=== PATIENT | female | born 1945 | race Caucasian/White ===

== ENCOUNTER → 2016-04-26 | Outpatient (CLI) | payer MEDICARE ==
[~2016-04-26] MED LIST: ACYCLOVIR800 MG PO; ADULT LOW DOSE81 MG PO; ADVIL200 M1 PO; AMBIEN 5MG TAB5 MG PO; AMBIEN CR6.25 MG PO; AROMASIN25 MG PO; ATIVAN0.5 MG PO; ATORVASTATIN CA10 M1 PO; B12 INJ.,1000 MCG/M IM; B12 INJ.,1000 MCG/M SL; BYSTOLIC5 MG PO; CALCIUM 500500 M1 PO; CARVEDILOL 25MG25 MG PO; HCTZ/LISINOPRIL1 TA3 PO; LEVOTHYROXIN0.075 M1 PO; LEVOTHYROXIN0.088 M2 PO; LIQUID MAGNESI400 MG PO; LORTAB 5/500 501 TAB PO; LOSARTAN POTASS50 MG PO; MEDROL 4MG. DOSE4 MG PO; METOPROLOL50 MG PO; NATURE'S BLE2500 MCG SL; NATURE'S BLEND500 MG PO; PLAVIX75 M1 PO; PROTONIX 40MG T40 MG PO; SYNTHROID 0.0.075 MG PO; TOPROL XL 50MG50 MG PO; XANAX 0.5MG TA0.5 MG PO; XANAX XR0.5 MG PO; ZOLPIDEM5 MG PO
--- NOTE | 2016-05-10 12:53 | RADIOLOGY REPORT PS360 ---
DIG MAMM-DX UNI A/VWS-LT W/CAD COMPARISON: 04/03/2016 and multiple previous exams INDICATION: Follow-up abnormal mammogram TECHNIQUE: Spot compression mag views FINDINGS: Postsurgical changes involve the inferior left breast with surgical clips and scarring at this region. There are g calcifications in this area which are somewhat amorphous. No linear calcifications evident. These are probably related to fat necrosis. No developing architectural distortion. Study is somewhat limited due to motion despite repeating the exam several times. IMPRESSION: Probably benign findings left breast regarding calcifications in the previous lumpectomy site likely representing fatty necrosis BI-RADS CATEGORY: 3_Probably Benign-Short Term F/U RECOMMENDED FOLLOWUP: 6 month mammographic follow-up with magnification views (A letter has been sent to the patient regarding results of the study.)
== END ==
LOC: RAD 15:00
DX: R92.8 Other abnormal and inconclusive findings on diagnostic imaging of breast (principal)
CPT/HCPCS: G0206-LT

== ENCOUNTER 2016-06-11 18:57 | Emergency (ER) | payer MEDICARE ==
[~2016-06-11] VITALS: Ht 154.9 cm; Wt 43.5 kg
[~2016-06-11 18:57] MED LIST changes: -CARVEDILOL 25MG25 MG PO; -LOSARTAN POTASS50 MG PO
[2016-06-11] MEDS ORDERED: LOSARTAN POTASS50 MG PO (19:01)
[2016-06-11] MEDS ORDERED: CARVEDILOL 25MG25 MG PO (19:02)
[2016-06-11 19:13] LABS: LYMPH # 1.8 K/mm3 (0.7-4.5)
[2016-06-11 19:17] LABS: HEMOGLOBIN 12.8 g/dL (12.2-16.2)
--- NOTE | 2016-06-11 19:34 | Emergency Room Report ---
See Addendum History of Present Illness Time Seen by 1913 Presenting Problem in Triage Pt arrived:Wheelchair Presenting Problem:PT C/O BURNING IN HER CHEST THAT STARTED AROUND 1830. ADVISES IT STARTED IN HR LEGS AND WENT UP INTO HER CHEST. 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 N Clinical Suspician of Infection? N Mental Status: 1 - Regular (Normal Baseline) Sepsis Risk:Low Sepsis Risk Have you (or family members/close friends) recently traveled outside the [place]? N If Yes, where/when: Have you had exposure to infectious disease within the past month? N TB? Other? Specify: Source patient, RN notes reviewed, family, RN/MD Exam Limitations no limitations Comment This is a 71-year-old lady brought in by her complaining with a hot sensation that started around 6:30 PM he has she underwent operative her legs, into her abdomen and finally into her chest. Patient denies any shortness of breath or chest pain. She had a heart cath in December 2015 but no stents were deployed at that time ask her coronaries were not critically obstructed. Patient stated that she feels like she is under tremendous amount of stress. She is advised that she also feels nauseated, with her teeth hurting and experiencing a lot of heartburn. ALLERGIES Coded Allergies: Sulfa (Sulfonamide Antibiotics) (Severe, [id number]/THROAT 05/01/16) Home Medications Active Scripts Aspirin (Adult Low Dose Aspirin EC) 81 MG PO DAILY #30 TAB Ref 1 Prov: 09/21/15 Clopidogrel Bisulfate (Plavix) 75 MG PO DAILY #30 TAB Ref 1 Prov: 09/21/15 Reported Medications Alprazolam (Xanax 0.5MG) 0.5 MG PO QHSP PRN INSOMNIA CYANOCOBALAMIN (VITAMIN B-12) (Vitamin B-12) 2,500 MCG SL DAILY Atorvastatin Calcium 10 MG PO QHS #30 TAB Levothyroxine Sodium (Synthroid 0.075MG) 0.075 MG PO DAILY Losartan Potassium (Losartan 50MG) 50 MG PO DAILY #30 Carvedilol (Carvedilol 25MG) 25 MG PO BID History Medical History General CAD? No Angina: Yes [place]: No Hypertension? Yes Hyperlipidemia? Yes CHF? No DVT? No PE? No COPD? No Asthma? No Anemia? No GERD? Yes Gastric ulcers? No GI Bleed? No Hernia? No Thyroid Problems? Yes Hypothyroidism? No CVA? No Seizures? No Diabetes? No Renal Insuffiency? No End Stage Renal Disease? No UTI? No Stones? No GB Disease: No Nephritic Syndrome? No Asplenia? No Hepatitis? No Sickle Cell Disease? No Arthritis? Yes Migraines? No Cataracts? No Glaucoma? No MRSA? No HIV? No TB? No Anxiety? Yes Depression? No Cancer? Yes Site: BREAST CA Immunization Hx DT/Tetanus Unknown Pneumonia Refuses Surgical Hx Previous Surgery?Y D & C CARPEL TUNNEL RT HAND LT BREAST CANCER Family History Family Hx Diabetes No CAD Yes Hypertension Yes Hyperlipidemia Yes Cancer Yes TB No Social History Smoking Hx Smoker: Never Smoker Tobacco: No Packs/day < 1 Pack Alcohol Alcohol: No Review of Systems All Other Systems Reviewed and Negative ENT other (dental pain). Gastrointestinal nausea Comment hot sensation all over her body Physical Exam Vital Signs Vital Signs Date Time Temp Pulse Resp B/P Pulse O2 O2 Flow FiO2 Ox Delivery Rate 06/11 1950 66 16 159/91 100 06/11 1858 98.2 74 16 162/82 100 General Appearance normal appearance, WD/WN Neck normal inspection, non-tender, supple, full range of motion Respiratory Status Yes: trachea midline, chest symmetrical, non tender chest. No: respiratory distress. Lung Sounds bilateral: normal breath sounds, lungs clear. 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 No Comment 20:00-case signed out to Dr villanueva, pending re-evaluation and repeat cardiac enzymes at 9 PM. Results/Orders Laboratory Tests 06/11/161899: Sodium 134 L, Potassium 3.6, Chloride 98, Carbon Dioxide 25, BUN 10, Creatinine 0.7, Estimated Creat Clear 52, Estimated GFR (MDRD) 83, Glucose 124 H, Calcium 9.4, Total Bilirubin 0.3, AST 27, ALT 30, Alkaline Phosphatase 76, Creatine Kinase 140, CK-MB (CK-2) Rel Index 0.9, CK and CKMB Interp 1.3, Troponin I 0.05, Total Protein 7.3, Albumin 3.9, Globulin 3.4 H, Albumin/Globulin Ratio 1.1, WBC 7.9, RBC 3.96 L, Hgb 12.8, Hct 36.5 L, MCV 92.0, RDW 12.5, Plt Count 257, MPV 5.7 L, Gran % 68.8, Gran # 5.4, Lymphocytes % 23.0, Monocytes % 5.8, Eosinophils % 1.9, Basophils % 0.5, Lymphocytes # 1.8, Monocytes # 0.5, Eosinophils # 0.2, Basophils # 0.0, PUBS MCHC 34.8, MCH 32.0 H Current Medication Orders Sig/Jose Manuel Start time Last Medication Dose Route Stop Time Status Admin Aspirin 324 MG ONCE ONE 06/11 2014 CANr PO 06/11 2015 Clopidogrel Bisulfate 300 MG ONCE ONE 06/11 2014 CAN PO 06/11 2015 Enoxaparin Sodium 100 MG ONCE ONE 06/11 2014 CANr SC 06/11 2015 Multi-Ingredient GI 60 ML ONCE ONE 06/11 1999 DC 06/11 Drug PO 06/11 Multi-Ingredient GI 0 .STK-MED ONE 06/11 1949 DC Drug PO Sodium Chloride 10 ML PRN PRN 06/11 1914 AC IV 06/12 1900 Orders Procedure Date/time Status ELECTROCARDIOGRAM REQUEST 06/11 1900 Active CHEST-PORTABLE 06/11 1900 Active IV SALINE LOCK 06/11 1900 Active CBC WITH AUTO DIFF 06/11 1900 Complete CARDIAC ENZYMES 06/11 1900 Complete CHEM 12 PROFILE 06/11 1900 Complete 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 of ischemic chgs, no ectopy, normal QRS XRAY/CT/US XRAY/CT/US XRAY chest XR interpretation by reviewed by me Xray Results no infiltrates, normal heart size, normal lung inflation svitlana Departure Departure Disposition Still a Patient Clinical Impression Primary Impression: Chest pain Qualifiers: Chest pain type: unspecified Qualified Code: R07.9 - Chest pain, unspecified Condition STABLE Referrals Eloy ESCALONA,Kendrick (Family) ED Critical Care Critical Care No at 202
[2016-06-11 22:38] VITALS: BP 140/79
--- NOTE | 2016-06-12 07:53 | RADIOLOGY REPORT PS360 ---
CHEST-PORTABLE HISTORY: Chest pain and pressure CP ORDERING PHYSICIAN: Yong carlson MD PATIENT AGE: 71 years COMPARISON: 01/02/2016 FINDINGS: The cardiomediastinal silhouette and pulmonary vascularity are within normal limits. Surgical clips are present over the left lower hemithorax. There is hyperinflation suggesting central airway disease. No lobar consolidation or collapse.. The right hilum is somewhat prominent possibly related to underlying vasculature. Upright PA and lateral chest suggested for further evaluation No acute bony abnormalities. IMPRESSION: 1. Suspect central airway disease/COPD 2. Mild prominence of the right hilum which may be due to the technique and may be confirmed with follow-up otherwise negative
== END 2016-06-11 22:39 | disposition home or self-care (01) ==
LOC: ER 18:57
PROVIDERS: Emergency Medicine
DX: R07.9 Chest pain, unspecified (principal); I10 Essential (primary) hypertension; K21.9 Gastro-esophageal reflux disease without esophagitis
CPT/HCPCS: J2405

== ENCOUNTER → 2016-07-13 | Outpatient (CLI) | payer MEDICARE ==
[~2016-07-13] MED LIST changes: +CARVEDILOL 25MG25 MG PO; +LOSARTAN POTASS50 MG PO
[2016-07-13 15:32] LABS: HEMOGLOBIN 12.4 g/dL (12.2-16.2); LYMPH # 1.1 K/mm3 (0.7-4.5)
[2016-07-13 15:40] LABS: URINE BILIRUBIN - DIPSTICK NEGATIVE (NEG); URINE BLOOD 1+ (NEG)
[2016-07-13 16:17] LABS: BUN 12 mg/dL (7-18); GFR (ESTIMATED) 83 ML/MIN (59-)
[2016-07-19 03:37] LABS: Osteocalcin 21.8 ng/mL (.); Vitamin D, 25-Hydroxy 31.2 ng/mL (30.0-100.0)
== END ==
LOC: LAB 15:06
PROVIDERS: Internal Medicine Nephrology
DX: M81.0 Age-related osteoporosis without current pathological fracture (principal); I11.9 Hypertensive heart disease without heart failure

== ENCOUNTER 2016-12-27 13:18 | Emergency (ER) | payer MEDICARE ==
[~2016-12-27] VITALS: Ht 154.9 cm; Wt 43.7 kg
[~2016-12-27 13:18] MED LIST changes: +CARVEDILOL 1212.5 MG PO; -CARVEDILOL 25MG25 MG PO; +MASON NATURAL2000 IU PO; +XANAX 1MG TABLET1 MG PO
[2016-12-27] MEDS ORDERED: LIPITOR10 MG PO (13:29)
--- NOTE | 2016-12-27 13:58 | Urgent Treatment Center Report ---
History of Present Issue Date/Time Seen by Provider 12/27/16 3583 Visit Reason Pt arrived:Walked Presenting Problem:PT HAS LT CALF PAIN THAT HAS BEEN BOTHERSOME SINCE BEFORE . CONTACTED [facility] OFFICE AND THEY SAID TO COME TO [facility]. PT AFRAID SHE MAY HAVE A BLOOD CLOT. PT DESCRIBES PAIN BURNING. Location if Accident: Onset of symptoms date/time:/ or onset unknown for:MEDICAL HX UNKNOWN Have you (or family members/close friends) recently traveled outside the [place]? N If Yes, where/when: Have you had exposure to infectious disease within the past month? TB? Other? Specify: c/o left calf pain since around 12/21/16. hx of svitlana LE pain x weeks. Worse at night after active throughout day, better w/ ambulation. Hasn't discussed w/ PCP but plans to. Reports today's pain is different. Stings at times. Mostly "just uncomfortable". Worse with palpation. Has noticed bruising in same area but isn' t sure how that occurred. "I have racked my brain thinking about it". Also has light bruise to right medial ankle "and I don't know how that happened either". Pt really worried about a blood clot and wants to rule that out today. Denies swelling or redness. Source patient Exam Limitations no limitations ALLERGIES Coded Allergies: Sulfa (Sulfonamide Antibiotics) (Severe, [id number]/THROAT 09/11/16) Home Medications Active Scripts Aspirin (Adult Low Dose Aspirin EC) 81 MG PO DAILY #30 TAB Ref 1 Prov: 09/21/15 Clopidogrel Bisulfate (Plavix) 75 MG PO DAILY #30 TAB Ref 1 Prov: 09/21/15 Reported Medications CYANOCOBALAMIN (VITAMIN B-12) (Vitamin B-12) 2,500 MCG SL DAILY Atorvastatin Calcium 10 MG PO QHS #30 TAB Levothyroxine Sodium (Synthroid 0.075MG) 0.075 MG PO DAILY Alprazolam (Xanax 1MG) 0.5-1 MG PO QHSP PRN SLEEP #30 TAB Carvedilol (Carvedilol 12.5MG) 12.5 MG PO BID CHOLECALCIFEROL (VITAMIN D3) (Vitamin D) 2,000 UNITS PO DAILY #30 Losartan Potassium (Losartan 50MG) 50 MG PO DAILY #30 Atorvastatin Calcium (Lipitor 10MG) 10 MG PO QHS History Medical History General CAD? No Angina: Yes [place]: Yes Hypertension? Yes Hyperlipidemia? Yes CHF? No DVT? No PE? No COPD? No Asthma? No Anemia? No GERD? Yes Gastric ulcers? No GI Bleed? No Hernia? No Thyroid Problems? Yes Hypothyroidism? No CVA? No Seizures? No Diabetes? No Renal Insuffiency? No UTI? No Stones? No BPH? No GB Disease: No Nephritic Syndrome? No Asplenia? No Hepatitis? No Sickle Cell Disease? No Arthritis? Yes Migraines? No Cataracts? No Glaucoma? No MRSA? No HIV? No TB? No Anxiety? Yes Depression? No Cancer? Yes Site: BREAST CA More? Yes Additional hx: OSTEOPOROSIS, GERD Immunization HX DT/Tetanus Unknown Pneumonia Never Had Surgical Hx Previous Surgery?Y D & C CARPEL TUNNEL RT HAND LT MASTECTOMY CARDIAC CATH X2 KIDNEY CATH Family History Family HX Diabetes No CAD Yes Hypertension Yes Hyperlipidemia Yes Cancer Yes TB No Social History Smoking Hx Smoker: Never Smoker Tobacco: No Packs/day N/A Alcohol Alcohol: No Review of Systems All Other Systems Reviewed and Negative Constitutional denies fever, denies malaise, denies weakness Respiratory denies shortness of breath Cardiovascular denies chest pain, denies edema, denies palpitations Gastrointestinal denies nausea Musculoskeletal joint pain ("typical. I have arthritis."), denies joint swelling Skin see HPI Psychiatric/Neurological denies numbness, denies tingling Physical Exam Vital Signs Vital Signs Date Time Temp Pulse Resp B/P Pulse O2 O2 Flow FiO2 Ox Delivery Rate 12/27 1452 99.2 70 18 183/89 98 12/27 1323 99.2 70 18 183/ 98 General Appearance normal appearance, no apparent distress Respiratory Status No: respiratory distress. Cardiovascular no peripheral edema Peripheral Pulses Pulses normal Yes Back gait normal Extremities normal range of motion (left knee, ankle), normal inspection (left LE x/ ecchymosis), mild tenderness left leg only in area of ecchymosis (see skin ), svitlana proximal calves 31cm Strength 5 Lower Ext (L), 5 Lower Ext (R) Neurologic alert, oriented x 3 Mental status normal mood/affect, very pleasant Skin bruising (lt proximal lateral LL 3x7cm) Medical Decision Making LABS/Meds/Orders Pt receiving controlled substance in ED? No Results/Orders Orders Procedure Date/time Status VENOUS LOWER EXT LT 12/27 1341 Complete XRAY/CT/US XRAY/CT/US Ultrasound lower extremity US Interpretation by reviewed by me (discussed w/ autumn Monaco) US results normal (negative for thrombosis) Progress UT Progress Notes 1 Date 12/27/16 Time 1425 Comment Left [facility] for venous doppler LLE UT Progress Notes 2 Date 12/27/16 Time 1448 Comment Pt returned. Verbal report from Jacinda w/ vascular lab. Negative doppler. Departure Departure Time of Disposition 1449 Disposition DC Home or Self Care(routine) Clinical Impression Primary Impression: Contusion of left lower leg, initial encounter Condition STABLE Referrals Kendrick Lyons MD (Family) IMMEDIATELY for new or worsening symptoms. Schedule FU appt to discuss svitlana leg pain occurring x weeks. Patient Instructions DI for Contusion Additional Instructions ice pack elevate No blood clot Follow up w/ primary care (pradeep or Dr. Lyons) to discuss ongoing svitlana leg pain. Discharge Counseling Counseled pt/family regarding diagnosis, test results, home care, follow up needs at [phone]
--- NOTE | 2016-12-27 13:58 | Urgent Treatment Center Report ---
History of Present Issue Date/Time Seen by Provider 12/27/16 9683 Visit Reason Pt arrived:Walked Presenting Problem:PT HAS LT CALF PAIN THAT HAS BEEN BOTHERSOME SINCE BEFORE . CONTACTED [facility] OFFICE AND THEY SAID TO COME TO [facility]. PT AFRAID SHE MAY HAVE A BLOOD CLOT. PT DESCRIBES PAIN BURNING. Location if Accident: Onset of symptoms date/time:/ or onset unknown for:MEDICAL HX UNKNOWN Have you (or family members/close friends) recently traveled outside the [place]? N If Yes, where/when: Have you had exposure to infectious disease within the past month? TB? Other? Specify: c/o left calf pain since around 12/21/16. hx of svitlana LE pain x weeks. Worse at night after active throughout day, better w/ ambulation. Hasn't discussed w/ PCP but plans to. Reports today's pain is different. Stings at times. Mostly "just uncomfortable". Worse with palpation. Has noticed bruising in same area but isn' t sure how that occurred. "I have racked my brain thinking about it". Also has light bruise to right medial ankle "and I don't know how that happened either". Pt really worried about a blood clot and wants to rule that out today. Denies swelling or redness. Source patient Exam Limitations no limitations ALLERGIES Coded Allergies: Sulfa (Sulfonamide Antibiotics) (Severe, [id number]/THROAT 09/11/16) Home Medications Active Scripts Aspirin (Adult Low Dose Aspirin EC) 81 MG PO DAILY #30 TAB Ref 1 Prov: 09/21/15 Clopidogrel Bisulfate (Plavix) 75 MG PO DAILY #30 TAB Ref 1 Prov: 09/21/15 Reported Medications CYANOCOBALAMIN (VITAMIN B-12) (Vitamin B-12) 2,500 MCG SL DAILY Atorvastatin Calcium 10 MG PO QHS #30 TAB Levothyroxine Sodium (Synthroid 0.075MG) 0.075 MG PO DAILY Alprazolam (Xanax 1MG) 0.5-1 MG PO QHSP PRN SLEEP #30 TAB Carvedilol (Carvedilol 12.5MG) 12.5 MG PO BID CHOLECALCIFEROL (VITAMIN D3) (Vitamin D) 2,000 UNITS PO DAILY #30 Losartan Potassium (Losartan 50MG) 50 MG PO DAILY #30 Atorvastatin Calcium (Lipitor 10MG) 10 MG PO QHS History Medical History General CAD? No Angina: Yes [place]: Yes Hypertension? Yes Hyperlipidemia? Yes CHF? No DVT? No PE? No COPD? No Asthma? No Anemia? No GERD? Yes Gastric ulcers? No GI Bleed? No Hernia? No Thyroid Problems? Yes Hypothyroidism? No CVA? No Seizures? No Diabetes? No Renal Insuffiency? No UTI? No Stones? No BPH? No GB Disease: No Nephritic Syndrome? No Asplenia? No Hepatitis? No Sickle Cell Disease? No Arthritis? Yes Migraines? No Cataracts? No Glaucoma? No MRSA? No HIV? No TB? No Anxiety? Yes Depression? No Cancer? Yes Site: BREAST CA More? Yes Additional hx: OSTEOPOROSIS, GERD Immunization HX DT/Tetanus Unknown Pneumonia Never Had Surgical Hx Previous Surgery?Y D & C CARPEL TUNNEL RT HAND LT MASTECTOMY CARDIAC CATH X2 KIDNEY CATH Family History Family HX Diabetes No CAD Yes Hypertension Yes Hyperlipidemia Yes Cancer Yes TB No Social History Smoking Hx Smoker: Never Smoker Tobacco: No Packs/day N/A Alcohol Alcohol: No Review of Systems All Other Systems Reviewed and Negative Constitutional denies fever, denies malaise, denies weakness Respiratory denies shortness of breath Cardiovascular denies chest pain, denies edema, denies palpitations Gastrointestinal denies nausea Musculoskeletal joint pain ("typical. I have arthritis."), denies joint swelling Skin see HPI Psychiatric/Neurological denies numbness, denies tingling Physical Exam Vital Signs Vital Signs Date Time Temp Pulse Resp B/P Pulse O2 O2 Flow FiO2 Ox Delivery Rate 12/27 1452 99.2 70 18 183/89 98 12/27 1323 99.2 70 18 183/ 98 General Appearance normal appearance, no apparent distress Respiratory Status No: respiratory distress. Cardiovascular no peripheral edema Peripheral Pulses Pulses normal Yes Back gait normal Extremities normal range of motion (left knee, ankle), normal inspection (left LE x/ ecchymosis), mild tenderness left leg only in area of ecchymosis (see skin ), svitlana proximal calves 31cm Strength 5 Lower Ext (L), 5 Lower Ext (R) Neurologic alert, oriented x 3 Mental status normal mood/affect, very pleasant Skin bruising (lt proximal lateral LL 3x7cm) Medical Decision Making LABS/Meds/Orders Pt receiving controlled substance in ED? No Results/Orders Orders Procedure Date/time Status VENOUS LOWER EXT LT 12/27 1341 Complete XRAY/CT/US XRAY/CT/US Ultrasound lower extremity US Interpretation by reviewed by me (discussed w/ autumn Monaco) US results normal (negative for thrombosis) Progress UT Progress Notes 1 Date 12/27/16 Time 1425 Comment Left [facility] for venous doppler LLE UT Progress Notes 2 Date 12/27/16 Time 1448 Comment Pt returned. Verbal report from Jacinda w/ vascular lab. Negative doppler. Departure Departure Time of Disposition 1449 Disposition DC Home or Self Care(routine) Clinical Impression Primary Impression: Contusion of left lower leg, initial encounter Condition STABLE Referrals Kendrick Lyons MD (Family) IMMEDIATELY for new or worsening symptoms. Schedule FU appt to discuss svitlana leg pain occurring x weeks. Patient Instructions DI for Contusion Additional Instructions ice pack elevate No blood clot Follow up w/ primary care (pradeep or Dr. Lyons) to discuss ongoing svitlana leg pain. Discharge Counseling Counseled pt/family regarding diagnosis, test results, home care, follow up needs at [phone]
[2016-12-27 14:52] VITALS: BP 183/89
--- NOTE | 2016-12-27 14:53 | CARDIOVASCULAR REPORT ---
"Venous Exam Indications: 729.5 Pain in limb. IMPRESSIONS 1. There is no evidence of significant Reflux. 2. No evidence of deep or superficial vein thrombosis involving the left lower extremity History: Left lower extremity pain. Varicose veins of the left lower extremity. Risk factors: Hypertension. Area of bruising seen on the lateral distal knee area. She states she doesn't recall any injury to this area. It appearedon 12/21/16 and has progressively gotten worse. Medications: Aspirin, 81 mg daily. Left lower extremity venous duplex evaluation. Doppler flow study including spectral analysis, color and martin scale imaging. Location: Vascular laboratory. Patient status: Emergency department. Tables: Venous flow and imaging: + +-------+ + |Location |Overall|Flow properties | + +-------+ + |Left common femoral |Patent |Normal phasicity; spontaneous; | | | |normal augmentation; compressible | + +-------+ + |Left saphenofemoral junction|Patent |Compressible | + +-------+ + |Left profunda femoral |Patent |Compressible | + +-------+ + |Left femoral |Patent |Normal phasicity; spontaneous; | | | |normal augmentation; compressible | + +-------+ + |Left greater saphenous |Patent |Normal phasicity; spontaneous; | | | |normal augmentation; compressible | + +-------+ + |Left popliteal |Patent |Normal phasicity; spontaneous; | | | |normal augmentation; compressible | + +-------+ + |Left posterior tibial |Patent |Compressible | + +-------+ + |Left peroneal |Patent |Compressible | + +-------+ + |Left gastrocnemius |Patent |Compressible | + +-------+ + |Left soleal |Patent |Compressible | + +-------+ + (Report amended ) Electronically signed by: Damien Latif [id number]"
== END 2016-12-27 14:52 | disposition home or self-care (01) ==
LOC: UTC 13:18
DX: S80.12XA Contusion of left lower leg, initial encounter (principal); X58.XXXA Exposure to other specified factors, initial encounter; I25.2 Old myocardial infarction; I10 Essential (primary) hypertension; E78.5 Hyperlipidemia, unspecified; E07.9 Disorder of thyroid, unspecified; Z85.3 Personal history of malignant neoplasm of breast; M81.0 Age-related osteoporosis without current pathological fracture; Z79.02 Long term (current) use of antithrombotics/antiplatelets; Z88.2 Allergy status to sulfonamides; Z79.82 Long term (current) use of aspirin; Z79.899 Other long term (current) drug therapy; Z98.61 Coronary angioplasty status; Z84.81 Family history of carrier of genetic disease; Z83.49 Family history of other endocrine, nutritional and metabolic diseases; Z80.9 Family history of malignant neoplasm, unspecified; M79.605 Pain in left leg; S90.01XA Contusion of right ankle, initial encounter

== ENCOUNTER 2017-01-01 20:31 | Emergency (ER) | payer MEDICARE ==
[~2017-01-01] VITALS: Ht 154.9 cm; Wt 43.7 kg
[~2017-01-01 20:31] MED LIST changes: +LIPITOR10 MG PO
[2017-01-01 21:08] LABS: HEMOGLOBIN 12.9 g/dL (12.2-16.2); LYMPH # 1.9 K/mm3 (0.7-4.5); LYMPH % 28.3 % (10-50.0)
--- NOTE | 2017-01-01 21:09 | Emergency Room Report ---
History of Present Illness Time Seen by [id number] Presenting Problem in Triage Pt arrived:Walked Presenting Problem:PT COMPLAINS OF INCREASED BP ALL DAY AND JEREMI WAS NOTIFIED BY HIS OFFICE AND PT WAS TOLD TO COME IN. PT STATES THAT BP WAS IN THE 200'S AND SHE TOOK HER BP MEDICATION LOSARTAN. 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 N Clinical Suspician of Infection? N Mental Status: 1 - Regular (Normal Baseline) Sepsis Risk:Low Sepsis Risk Have you (or family members/close friends) recently traveled outside the [place]? N If Yes, where/when: Have you had exposure to infectious disease within the past month? N TB? Other? Specify: Source patient, RN notes reviewed, family, old records Exam Limitations no limitations Comment pt with elevated bp despite meds since this afternoon with facial tingling but no vision sx and no speech or motor sx and no chest pain or syncope Cardiac Chest Pain Chest pain indicative of cardiac No Timing/Duration this evening Severity moderate ALLERGIES Coded Allergies: Sulfa (Sulfonamide Antibiotics) (Severe, [id number]/THROAT 09/11/16) Home Medications Active Scripts Aspirin (Adult Low Dose Aspirin EC) 81 MG PO DAILY #30 TAB Ref 1 Prov: 09/21/15 Clopidogrel Bisulfate (Plavix) 75 MG PO DAILY #30 TAB Ref 1 Prov: 09/21/15 Reported Medications CYANOCOBALAMIN (VITAMIN B-12) (Vitamin B-12) 2,500 MCG SL DAILY Atorvastatin Calcium 10 MG PO QHS #30 TAB Levothyroxine Sodium (Synthroid 0.075MG) 0.075 MG PO DAILY Alprazolam (Xanax 1MG) 0.5-1 MG PO QHSP PRN SLEEP #30 TAB Carvedilol (Carvedilol 12.5MG) 12.5 MG PO BID CHOLECALCIFEROL (VITAMIN D3) (Vitamin D) 2,000 UNITS PO DAILY #30 Losartan Potassium (Losartan 50MG) 50 MG PO DAILY #30 Atorvastatin Calcium (Lipitor 10MG) 10 MG PO QHS History Medical History General CAD? No Angina: Yes CT: Yes Hypertension? Yes Hyperlipidemia? Yes CHF? No DVT? No PE? No COPD? No Asthma? No Anemia? No GERD? Yes Gastric ulcers? No GI Bleed? No Hernia? No Thyroid Problems? Yes Hypothyroidism? No CVA? No Seizures? No Diabetes? No Renal Insuffiency? No End Stage Renal Disease? No UTI? No Stones? No BPH? No GB Disease: No Nephritic Syndrome? No Asplenia? No Hepatitis? No Sickle Cell Disease? No Arthritis? Yes Migraines? No Cataracts? No Glaucoma? No MRSA? No HIV? No TB? No Anxiety? Yes Depression? No Cancer? Yes Site: BREAST CA More? Yes Additional hx: OSTEOPOROSIS Immunization Hx DT/Tetanus Unknown Pneumonia Never Had Surgical Hx Previous Surgery?Y D & C CARPEL TUNNEL RT HAND LT LUMPECTOMY CARDIAC CATH X3 KIDNEY CATH Family History Family Hx Diabetes No CAD Yes Hypertension Yes Hyperlipidemia Yes Cancer Yes TB No Social History Smoking Hx Smoker: Former Smoker Tobacco: No Packs/day N/A Alcohol Alcohol: Yes Drugs none Review of Systems All Other Systems Reviewed and Negative Constitutional denies fever Eyes denies drainage ENT denies: ear pain, epistaxis, throat pain. Respiratory denies cough, denies shortness of breath, denies wheezing Cardiovascular denies chest pain, denies syncope Gastrointestinal denies abdominal pain, denies diarrhea, denies vomiting Genitourinary denies: dysuria, frequency, hesitancy, hematuria. Musculoskeletal denies back pain, denies joint pain, denies joint swelling, denies neck pain Skin denies rash Psychiatric/Neurological see HPI, denies headache, denies seizure, tingling, denies weakness Physical Exam Vital Signs Vital Signs Date Time Temp Pulse Resp B/P Pulse O2 O2 Flow FiO2 Ox Delivery Rate 01/02 2236 99.0 71 14 158/82 95 01/01 2204 78 14 187/95 99 01/01 2130 80 14 178/90 99 01/013 99.0 79 14 191/102 99 - WBC >12,000 or <4,000 or 10% bands? 2 or more SIRS Criteria Met? B/P:158/82 MAP:131 Creatinine >2.0? UA output<0.5ml/kg/hr for 2 hrs? Platelet count >100,000? Lactate >2.0mmol/1? INR >1.2 or PTT > than 60 sec? Evidence of Organ Dysfunction? Provider documented clinical suspician of infection? N Sepsis Criteria Count: 0 Sepsis Risk: Low Sepsis Risk General Appearance no apparent distress Eye Exam - bilateral eye PERRL, bilateral eye EOMI Ear, Nose, Throat normal ENT inspection Neck supple Respiratory Status No: respiratory distress. Lung Sounds bilateral: lungs clear. 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 No Results/Orders Laboratory Tests 01/01/172044: Creatine Kinase 57, CK-MB (CK-2) Rel Index 0.9, CK and CKMB Interp < 0.5, Troponin I 0.06 01/01/172044: Sodium 138, Potassium 3.7, Chloride 102, Carbon Dioxide 28, BUN 7, Creatinine 0.7, Estimated Creat Clear 52, Estimated GFR (MDRD) 83, Glucose 101, Calcium 9.2 , WBC 6.8, RBC 4.01 L, Hgb 12.9, Hct 37.0, MCV 92.3, RDW 12.3, Plt Count 245, MPV 7.1 L, Gran % 61.9, Gran # 4.2, Lymphocytes % 28.3, Monocytes % 7.1, Eosinophils % 2.0, Basophils % 0.7, Lymphocytes # 1.9, Monocytes # 0.5, Eosinophils # 0.1, Basophils # 0.1, PUBS MCHC 34.8, MCH 32.1 H Current Medication Orders Sig/Jose Manuel Start time Last Medication Dose Route Stop Time Status Admin Clonidine HCl 0 .STK-MED ONE 01/01 2155 DC .ROUTE Clonidine HCl 0.1 MG ONCE ONE 01/01 2115 DC PO 01/02 2116 Sodium Chloride 10 ML PRN PRN 01/01 2100 AC IV 01/02 2054 Orders Procedure Date/time Status ELECTROCARDIOGRAM REQUEST 01/01 2055 Active IV SALINE LOCK 01/01 2055 Active CBC WITH AUTO DIFF 01/01 2055 Complete CARDIAC ENZYMES 01/01 2055 Complete BASIC METABOLIC PROFILE 01/01 2055 Complete 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 ST/Twave chgs Departure Departure Time of Disposition 2243 Disposition DC Home or Self Care(routine) Clinical Impression Primary Impression: Hypertensive emergency Condition STABLE Referrals Molly Palomo APRN (Family) discussed with dr broderick Patient Instructions Treatments for High Blood Pressure: More Than Just Taking a Pill Additional Instructions please call pcp in am Discharge Counseling Counseled pt/family regarding diagnosis, test results, medications/RX, follow up needs ED Critical Care Critical Care No at 2250
[2017-01-01 22:55] VITALS: BP 167/67
== END 2017-01-01 22:57 | disposition home or self-care (01) ==
LOC: ER 20:31
PROVIDERS: Emergency Medicine
DX: I16.1 Hypertensive emergency (principal); I10 Essential (primary) hypertension; Z87.891 Personal history of nicotine dependence; E78.5 Hyperlipidemia, unspecified; E07.9 Disorder of thyroid, unspecified; M81.0 Age-related osteoporosis without current pathological fracture

== ENCOUNTER 2017-01-24 15:35 | Observation (INO) | payer MEDICARE ==
[~2017-01-24] VITALS: Ht 154.9 cm; Wt 45.8 kg
[2017-01-24 15:41] VITALS: BP 182/89
[2017-01-24 16:12] LABS: HEMOGLOBIN 13.7 g/dL (12.2-16.2); LYMPH # 1.6 K/mm3 (0.7-4.5); LYMPH % 23.4 % (10-50.0)
[2017-01-24 16:16] LABS: URINE BILIRUBIN - DIPSTICK NEGATIVE (NEG); URINE BLOOD NEGATIVE (NEG)
--- NOTE | 2017-01-24 17:01 | Emergency Room Report ---
History of Present Illness Time Seen by 1617 Presenting Problem in Triage Pt arrived:Walked Presenting Problem:FEELING BAD FOR 2 DAYS, H/A WITH NUMBNESS IN THE TOP OF HER HEAD, FEELS HOT TODAY. TOOK TYLENOL AND HAS BURNING SENSATION IN EPIGASTRIC AREA AND CHEST. PT HAS HAD A FEVER THIS MORNING. CHANGED BLOOD PRESSURE MEDICATION 3 DAYS AGO. HAS NOT BEEN URINATING VERY MUCH SINCE THE MEDICATION CHANGE. 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 Y Clinical Suspician of Infection? Y Mental Status: 1 - Regular (Normal Baseline) Sepsis Risk:Low Sepsis Risk Have you (or family members/close friends) recently traveled outside the [place]? N If Yes, where/when: Have you had exposure to infectious disease within the past month? TB? Other? 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 She has been nervous about the side effects. She is excisions been experiencing headache, dizziness, and developed RIGHT shoulder tingling sensation 1 hour prior to presenting to the ED that resolved spontaneously. She is very concerned about her blood pressure and her medications. She denies having weakness, chest pain, abdominal pain, shortness of air. She did have hottness in the head and burning sensation in epigastric area. During interview and examination she was asymptomatic and blood pressure was 150 /70 heart rate is in the 70s and a sat is 100 percent. Source patient, RN notes reviewed, family Exam Limitations no limitations ALLERGIES Coded Allergies: Sulfa (Sulfonamide Antibiotics) (Severe, [id number]/THROAT 09/11/16) Home Medications Active Scripts Aspirin (Adult Low Dose Aspirin EC) 81 MG PO DAILY #30 TAB Ref 1 Prov: 09/21/15 Clopidogrel Bisulfate (Plavix) 75 MG PO DAILY #30 TAB Ref 1 Prov: 09/21/15 Reported Medications Atorvastatin Calcium 10 MG PO QHS #30 TAB Levothyroxine Sodium (Synthroid 0.075MG) 0.075 MG PO DAILY Alprazolam (Xanax 1MG) 0.5-1 MG PO QHSP PRN SLEEP #30 TAB Carvedilol (Carvedilol 12.5MG) 12.5 MG PO BID CHOLECALCIFEROL (VITAMIN D3) (Vitamin D) 2,000 UNITS PO DAILY #30 Losartan Potassium (Losartan 50MG) 50 MG PO DAILY #30 Atorvastatin Calcium (Lipitor 10MG) 10 MG PO QHS History Medical History General CAD? No Angina: Yes [place]: Yes Hypertension? Yes Hyperlipidemia? Yes CHF? No DVT? No PE? No COPD? No Asthma? No Anemia? No GERD? Yes Gastric ulcers? No GI Bleed? No Hernia? No Thyroid Problems? Yes Hypothyroidism? No CVA? No Seizures? No Diabetes? No Renal Insuffiency? No End Stage Renal Disease? No UTI? No Stones? No BPH? No GB Disease: No Nephritic Syndrome? No Asplenia? No Hepatitis? No Sickle Cell Disease? No Arthritis? Yes Migraines? No Cataracts? No Glaucoma? No MRSA? No HIV? No TB? No Anxiety? Yes Depression? No Cancer? Yes Site: BREAST CA More? Yes Additional hx: OSTEOPOROSIS Immunization Hx DT/Tetanus Unknown Pneumonia Never Had Surgical Hx Previous Surgery?Y D & C CARPEL TUNNEL RT HAND LT LUMPECTOMY CARDIAC CATH X3 KIDNEY CATH Family History Family Hx Diabetes No CAD Yes Hypertension Yes Hyperlipidemia Yes Cancer Yes TB No Social History Smoking Hx Smoker: Never Smoker Tobacco: No Packs/day N/A Alcohol Alcohol: Yes Review of Systems All Other Systems Reviewed and Negative Constitutional see HPI, malaise, weakness Eyes no symptoms reported ENT no symptoms reported. Respiratory no symptoms reported Cardiovascular no symptoms reported Gastrointestinal no symptoms reported Genitourinary no symptoms reported. Musculoskeletal no symptoms reported Skin no symptoms reported Physical Exam Vital Signs Vital Signs Date Time Temp Pulse Resp B/P Pulse O2 O2 Flow FiO2 Ox Delivery Rate 01/24 1640 68 18 155/86 100 01/24 1613 71 182/78 01/24 1613 74 182/89 01/24 1612 70 175/80 01/24 1607 66 18 175/80 100 01/24 1541 99.1 68 18 182/89 99 - WBC >12,000 or <4,000 or 10% bands? 2 or more SIRS Criteria Met? B/P:155/86 MAP:120 Creatinine >2.0? UA output<0.5ml/kg/hr for 2 hrs? Platelet count >100,000? Lactate >2.0mmol/1? INR >1.2 or PTT > than 60 sec? Evidence of Organ Dysfunction? Provider documented clinical suspician of infection? Y Sepsis Criteria Count: 1 Sepsis Risk: Low Sepsis Risk General Appearance normal appearance, WD/WN Eye Exam - bilateral eye normal exam, bilateral eye PERRL, bilateral eye EOMI Ear, Nose, Throat hearing grossly normal, normal ENT inspection Neck normal inspection, non-tender, supple, full range of motion Respiratory Status Yes: trachea midline, chest symmetrical, non tender chest. No: respiratory distress. Lung Sounds bilateral: normal breath sounds, lungs clear. 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 No Results/Orders Laboratory Tests 01/24/17 1540: Magnesium Pending 01/24/17 1540: Lactic Acid 1.3 01/24/17 1540: Sodium 125 L, Potassium 3.4 L, Chloride 89 L, Carbon Dioxide 26, BUN 6 L, Creatinine 0.7, Estimated Creat Clear 52, Estimated GFR (MDRD) 83, Glucose 153 H, Calcium 9.1, Total Bilirubin 0.6, AST 20, ALT 23, Alkaline Phosphatase 73, Creatine Kinase 72, CK-MB (CK-2) Rel Index 0.8, CK and CKMB Interp 0.6, Troponin I 0.05, B-Natriuretic Peptide 29, Total Protein 7.0, Albumin 4.1, Globulin 2.9, Albumin/Globulin Ratio 1.4, WBC 6.7, RBC 4.30, Hgb 13.7, Hct 39.5, MCV 91.9, RDW 12.1, Plt Count 277, MPV 7.0 L, Gran % 66.0, Gran # 4.5, Lymphocytes % 23.4, Monocytes % 8.4, Eosinophils % 1.7, Basophils % 0.6, Lymphocytes # 1.6, Monocytes # 0.6, Eosinophils # 0.1, Basophils # 0.0, PUBS MCHC 34.7, MCH 31.9 H , Urine Color YELLOW, Urine Appearance CLEAR, Urine pH 7.0, Ur Specific [place] 1.010, Urine Protein NEGATIVE, Urine Ketones NEGATIVE, Urine Blood NEGATIVE, Urine Nitrate NEGATIVE, Urine Bilirubin NEGATIVE, Urine Urobilinogen 0.2, Ur Leukocyte Esterase NEGATIVE, Urine RBC 5-10, Urine WBC NONE, Ur Squamous Epith Cells NONE, Urine Bacteria TRACE, Urine Glucose NEGATIVE Current Medication Orders Sig/Jose Manuel Start time Last Medication Dose Route Stop Time Status Admin Potassium Chloride 40 MEQ ONCE ONE 01/24 1745 AC PO 01/24 174 Sodium Chloride 10 ML PRN PRN 01/24 1600 AC IV 01/25 155 Orders Procedure Date/time Status DIET-NOTHING BY MOUTH 01/[address] HEAD REQ 01/24 1654 Complete MAGNESIUM 01/24 165 Active 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 01/24 160 Active ORTHOSTATIC B/P 01/24 1609 Active CULTURE, BLOOD 01/24 160 Active URINALYSIS/COMPLETE 01/24 160 Complete LACTIC ACID 01/24 160 Complete ELECTROCARDIOGRAM REQUEST 01/24 155 Active CHEST-PORTABLE 01/24 155 Active IV SALINE LOCK 01/24 155 Active CBC WITH AUTO DIFF 01/24 155 Complete CARDIAC ENZYMES 01/24 155 Complete CHEM 12 PROFILE 01/24 155 Complete BRAIN NATRIURETIC PEPTIDE 01/24 155 Complete 12 LEAD EKG-[facility] (INIT[facility]) 01/[address] HEAD W/O CONTRAST 01/24 UNK Active CM/EKG CM/EKG EKG normal sinus rhythm 67/m and baseline artifact no acute findings XRAY/CT/US XRAY/CT/US XRAY chest XR interpretation by reviewed by me Xray Results normal/NAD Departure Departure Time of Disposition 1742 Disposition Still a Patient Clinical Impression Primary Impression: Hyponatremia Secondary Impressions: Hypertension Condition STABLE Referrals Molly Palomo APRN (Family) Additional Instructions CALLED DR THELMA RENAE AGREED TO ADMIT FOR IVF THERAPY AND RECHECK HER LABS IN AM, HOLD DIURETICS. Discharge Counseling Counseled pt/family regarding diagnosis, test results, medications/RX, home care, follow up needs ED Critical Care Critical Care No If Critical Care minutes are documented, the time involved in the performance of seperately reportable procedures was not counted toward critical care time documented. I directly delivered medical care to this critically ill and/or injured patient. Timely evaluation and treatment was necessary to address the significant organ system(s) dysfunction present in this patient. Comments I discussed with Dr. Martinez who advised to admit the patient for IV therapy at 0263
[2017-01-24] MEDS ORDERED: HYDROCHLOROTH12.5 M2 PO (18:42)
[2017-01-24 18:47] VITALS: BP 145/79
[2017-01-24 18:53] VITALS: BP 145/79
--- NOTE | 2017-01-24 18:53 | RADIOLOGY REPORT PS360 ---
CT HEAD WITHOUT CONTRAST CT BONE WINDOWS included ORDERING PHYSICIAN : Kendrick Lyons MD PATIENT AGE: 71 years GENDER: Female PROCEDURE: Routine axial images headwithout contrast. Brain & bone windows HISTORY: HYPERTENSION, HEADACHE COMPARISON: None available FINDINGS: No acute intracranial findings. No hemorrhage. . No mass effect or mass lesion. No subdural nor extra-axial collection. A single Small punctate calcification at left cerebral hemisphere likely located along the course left posterior temporal horn of lateral ventricle. Likely reflects minor dystrophic or old inflammatory calcification at the wall of ventricle or there about... Not felt to be of current significance. No mass affect here. However If there should be persistent or progressive headache, postcontrast study or MRI should be considered. . On also note some minimal fat or air in the region of the cavernous sinuses bilaterally. Typically this is a incidental observation and not of significance but again if headache persists may benefit from follow-up MRI or postcontrast CT . Ventricles & basal cisterns otherwise appear satisfactory. , .. The posterior fossa appear satisfactory and unremarkable. The skull is intact. The visualized portions of the paranasal sinuses are clear. Mastoid air cells, middle ear & IACs are unremarkable. IMPRESSION: No acute intracranial findings. Minor comments in text.: If patient did have persistent or progressive headache follow-up MRI brain or CT postcontrast suggest
[2017-01-24 20:29] VITALS: BP 159/63
[2017-01-25 04:30] VITALS: BP 126/54
--- NOTE | 2017-01-25 07:15 | Discharge Summary Standard ---
See Addendum Demographics: Admit date: 01/25/17 Chief complaint: Weakness PRIMARY DIAGNOSIS: hyponatremia Allergies: Coded Allergies: Sulfa (Sulfonamide Antibiotics) (Severe, [id number]/THROAT 09/11/16) History of present illness: History of present illness: 71-year-old white female with hypertension, recently started on hydrochlorothiazide, she feels that this has made her weaker, came to the emergency department, found to have a sodium level of 125 and admitted for observation, rehydration and further evaluation of her blood pressure. Overnight she did well. This morning she feels much better. Past medical history: Family HX Diabetes No CAD Yes Hypertension Yes Hyperlipidemia Yes Cancer Yes TB No Immunization HX DT/Tetanus Unknown Flu Refused Pneumonia Refuses TB Test in last year No General CAD? No Angina: Yes [place]: Yes Hypertension? Yes Hyperlipidemia? Yes CHF? No DVT? No PE? No COPD? No Asthma? No Anemia? No GERD? Yes Gastric ulcers? No GI Bleed? No Hernia? No Thyroid Problems? Yes Hypothyroidism? No CVA? No Seizures? No Diabetes? No Renal Insuffiency? No UTI? No Stones? No BPH? No GB Disease: No Nephritic Syndrome? No Asplenia? No Hepatitis? No Sickle Cell Disease? No Arthritis? Yes Migraines? No Cataracts? No Glaucoma? No MRSA? No HIV? No TB? No Anxiety? Yes Depression? No Cancer? Yes Site: BREAST CA More? Yes Additional hx: OSTEOPOROSIS Past Surgical HX Previous Surgery?Y D & C CARPEL TUNNEL RT HAND LT LUMPECTOMY CARDIAC CATH X3 KIDNEY CATH Current home meds: Active Scripts Aspirin (Adult Low Dose Aspirin EC) 81 MG PO DAILY #30 TAB Ref 1 Prov: 09/21/15 Clopidogrel Bisulfate (Plavix) 75 MG PO DAILY #30 TAB Ref 1 Prov: 09/21/15 Reported Medications Atorvastatin Calcium 10 MG PO QHS #30 TAB Levothyroxine Sodium (Synthroid 0.075MG) 0.075 MG PO DAILY Alprazolam (Xanax 1MG) 0.5-1 MG PO QHSP PRN SLEEP #30 TAB Carvedilol (Carvedilol 12.5MG) 12.5 MG PO BID CHOLECALCIFEROL (VITAMIN D3) (Vitamin D) 2,000 UNITS PO DAILY #30 Hydrochlorothiazide 12.5 MG PO DAILY #30 Losartan Potassium (Losartan 50MG) 50 MG PO DAILY #30 Social Hx: Smoking HX Tobacco No Packs/day N/A Are you/the child exposed to second-hand smoke: No Alcohol Alcohol: No Hx of Drug Use Drug Use? No Patien't marital status is single Patient's support system is good Review of systems: Constitutional malaise, weakness. No: fever. Respiratory No: no symptoms reported. Cardiovascular No no symptoms reported Gastrointestinal/Abdominal No no symptoms reported Genitourinary No: no symptoms reported. Musculoskeletal No: no symptoms reported. Neurological Yes: weakness. Exam: Lab data for last 24 hours: Laboratory Tests 01/25/17 0617: Sodium 131 L, Potassium 3.6, Chloride 97 L, Carbon Dioxide 25, BUN 5 L, Creatinine 0.6, Estimated Creat Clear 64, Estimated GFR (MDRD) 99, Glucose 93, Calcium 8.6 01/24/17 1540: Magnesium 1.8 01/24/17 1540: Lactic Acid 1.3 01/24/17 1540: Sodium 125 L, Potassium 3.4 L, Chloride 89 L, Carbon Dioxide 26, BUN 6 L, Creatinine 0.7, Estimated Creat Clear 52, Estimated GFR (MDRD) 83, Glucose 153 H, Calcium 9.1, Total Bilirubin 0.6, AST 20, ALT 23, Alkaline Phosphatase 73, Creatine Kinase 72, CK-MB (CK-2) Rel Index 0.8, CK and CKMB Interp 0.6, Troponin I 0.05, B-Natriuretic Peptide 29, Total Protein 7.0, Albumin 4.1, Globulin 2.9, Albumin/Globulin Ratio 1.4, WBC 6.7, RBC 4.30, Hgb 13.7, Hct 39.5, MCV 91.9, RDW 12.1, Plt Count 277, MPV 7.0 L, Gran % 66.0, Gran # 4.5, Lymphocytes % 23.4, Monocytes % 8.4, Eosinophils % 1.7, Basophils % 0.6, Lymphocytes # 1.6, Monocytes # 0.6, Eosinophils # 0.1, Basophils # 0.0, PUBS MCHC 34.7, MCH 31.9 H , Urine Color YELLOW, Urine Appearance CLEAR, Urine pH 7.0, Ur Specific [place] 1.010, Urine Protein NEGATIVE, Urine Ketones NEGATIVE, Urine Blood NEGATIVE, Urine Nitrate NEGATIVE, Urine Bilirubin NEGATIVE, Urine Urobilinogen 0.2, Ur Leukocyte Esterase NEGATIVE, Urine RBC 5-10, Urine WBC NONE, Ur Squamous Epith Cells NONE, Urine Bacteria TRACE, Urine Glucose NEGATIVE Microbiology 01/25 1540 BLOOD: Anaerobic Blood Culture - RECD 01/25 1540 BLOOD: Aerobic Blood Culture - RECD 01/25 1540 BLOOD: Anaerobic Blood Culture - RECD 01/25 1540 BLOOD: Aerobic Blood Culture - RECD Admission vital signs: 1ST Vital Signs Result Date Time Pulse Ox 99 01/24 1541 B/P 182/89 01/24 1541 Temp 99.1 01/24 1541 Pulse 68 01/24 1541 Resp 18 01/24 1541 O2 Delivery ROOM AIR 01/24 184 Exam General appearance: normal appearance, alert, awake Eyes: normal exam, anicteric ENT: normal exam, mucous membranes moist Neck: normal inspection, non-tender, no carotid bruit, no JVD Cardiovascular: normal exam Respiratory: normal exam, clear to auscultation ABD: normal exam, non-distended, normal bowel sounds Genitourinary: normal voiding & quantity Extremities: normal exam Musculoskeletal: normal exam Skin: normal exam, intact, normal color Neuro: normal exam, alert, no deficit Hospital Course Hospital Course: Patient was admitted overnight. Sodium levels improved. She feels much better. Plan will be to discharge her home with short-term cardiology follow-up to reevaluate her blood pressure. Medications Medications: Discharge meds are as noted. Follow up Follow up in office in: 3 DAYS with: Morales Castelan MD at 0715
[2017-01-25] MEDS ORDERED: LOSARTAN POTAS100 MG PO (07:16)
--- NOTE | 2017-01-25 07:17 | PHARMACY CLINIC NOTE ---
Patient Demographics Patient Demographics Admission date: 01/24/17 Date: 01/25/17 Time: 0717 Allergies Coded Allergies: Sulfa (Sulfonamide Antibiotics) (Severe, [id number]/THROAT 09/11/16) HEIGHT- FT: 5 IN: 1.00 K.813 VTE General Information Labs: Laboratory Tests 01/24 1540 Hematology Hgb (12.2 - 16.2 g/dL) 13.7 Hct (37.0 - 47.0 %) 39.5 Plt Count (142 - 424 K/mm3) 277 Disclaimer The following section includes nursing documentation that has been pulled in for pharmacy review. Patient's VTE score: 1 Patient's VTE Risk: VERY LOW RISK Clinical trial participant? No VTE prophylaxis NQF [id number] VTE prophylaxis ordered? Yes Type of prophylaxis/treatment: THIAGO at 0717
--- NOTE | 2017-01-25 07:17 | PHARMACY CLINIC NOTE ---
Patient Demographics Patient Demographics Admission date: 01/24/17 Date: 01/25/17 Time: 0717 Allergies Coded Allergies: Sulfa (Sulfonamide Antibiotics) (Severe, [id number]/THROAT 09/11/16) HEIGHT- FT: 5 IN: 1.00 K.813 VTE General Information Labs: Laboratory Tests 01/24 1540 Hematology Hgb (12.2 - 16.2 g/dL) 13.7 Hct (37.0 - 47.0 %) 39.5 Plt Count (142 - 424 K/mm3) 277 Disclaimer The following section includes nursing documentation that has been pulled in for pharmacy review. Patient's VTE score: 1 Patient's VTE Risk: VERY LOW RISK Clinical trial participant? No VTE prophylaxis NQF [id number] VTE prophylaxis ordered? Yes Type of prophylaxis/treatment: THIAGO at 0717
--- NOTE | 2017-01-25 07:38 | RADIOLOGY REPORT PS360 ---
CHEST-PORTABLE COMPARISON: Oral upright chest 06/11/2016 HISTORY: Chest pain TECHNIQUE: Portable upright chest FINDINGS: Moderate emphysematous changes seen with hyperexpansion of the lung watson and depression of the hemidiaphragms. There is no pneumonic infiltrate. Again noted are surgical clips in the left lower lung field. Cardiac size is normal and the vascularity is normal. There is no pleural fluid. IMPRESSION: Moderate COPD, no acute chest pathology noted
[2017-01-25 08:50] VITALS: BP 126/54
--- OUTSIDE RECORDS SUMMARY | 2017-01-31 20:30 | External Medical Summary Rpt | CCD ---
Author Author , SHARATH EARLY Address Unknown Phone [email or web address] Purpose Continuity of Care Document - 09-11-2016 through 2016 Results Labs Lab Lab Date Result Refere Interp Status Commen Order Detail nces retati t Range on Urinalysis dipstick W Reflex Microscopic panel in Urine (01-24-2017 15:40) Bacteri TRACE O complet a 017 ed [Presen 15:40 ce] in Urine sedimen t by Light microsc opy Erythro 5-10 0 complet cytes 017 ed [Presen 15:40 ce] in Urine sedimen t by Light microsc opy Epithel NONE 0#/hp complet ial 017 f - ed cells.s 15:40 5#/hp quamous f [Presen ce] in Urine sedimen t by Microsc opy high power field Urinalysis dipstick W Reflex Microscopic panel in Urine (01-24-2017 15:40) Appeara CLEAR CLEAR complet nce of 017 ed Urine 15:40 Bilirub NEGATIV NEG complet in 017 E ed [Presen 15:40 ce] in Urine by Test strip Erythro NEGATIV NEG complet cytes 017 E ed [Presen 15:40 ce] in Urine Color YELLOW YELLOW complet of 017 ed Urine 15:40 Ketones NEGATIV NEG complet 017 E ed [Presen 15:40 ce] in Urine by Automat ed test strip Mucus NEGATIV NEG complet [Presen 017 E ed ce] in 15:40 Urine sedimen t by Light microsc opy Nitrite NEGATIV NEG complet 017 E ed [Presen 15:40 ce] in Urine by Test strip Urobili 0.2 NEG complet nogen 017 ed [Presen 15:40 ce] in Urine by Test strip
--- OUTSIDE RECORDS SUMMARY | 2017-01-31 20:30 | External Medical Summary Rpt | CCD ---
Demographics Preferred Language Divehi Marital Status Unknown Taoism Affiliation Unknown Race Unknown Ethnic Group Unknown Author Author , SHARATH EARLY Address Unknown Phone Immunization No patient found.
--- OUTSIDE RECORDS SUMMARY | 2017-01-31 20:30 | External Medical Summary Rpt | CCD ---
Author Author , SHARATH EARLY Address Unknown Phone [email or web address] Purpose Continuity of Care Document - 09-11-2016 [...]
--- OUTSIDE RECORDS SUMMARY | 2017-01-31 20:30 | External Medical Summary Rpt | CCD ---
Demographics Preferred Language Japanese Marital Status Unknown Sikhism Affiliation Unknown Race Unknown Ethnic Group Unknown Author Author , SHARATH EARLY Address Unknown Phone Immunization No patient found.
--- OUTSIDE RECORDS SUMMARY | 2017-01-31 20:32 | External Medical Summary Rpt ---
Author Author [facility] [employer], [employer] Organization [employer] Address Unknown Phone Unavailable Results Basic metabolic panel in Blood Observa Value Referen Units Interpr Notes Date tion ce etation Range Urea 7 - 18 mg/dL Low No Oct 6 nitrogen informati 2017 6:17 [Mass/vol on in AM ume] in source Serum or data Plasma Calcium 8.5 - mg/dL Normal No Oct 6 [Mass/vol 10.1 informati 2017 6:17 ume] in on in AM Serum or source Plasma data Chloride 98 - 107 mmoL/L Low No Oct 6 [Moles/vo informati 2017 6:17 lume] in on in AM Serum or source Plasma data Carbon 21.0 - mmoL/L Normal No Oct 6 dioxide, 32.0 informati 2017 6:17 total on in AM [Moles/vo source lume] in data Serum or Plasma Creatinin 0.55 - mg/dL Normal No Oct 6 e 1.02 informati 2017 6:17 [Mass/vol on in AM ume] in source Serum or data Plasma Creatinin 50 - 200 ML/MIN Normal No Oct 6 e renal informati 2017 6:17 clearance on in AM source predicted data by Cockcroft -Gault formula Estimated 59- ML/MIN No REFERENCE Oct 6 informati RANGE: 2017 6:17 glomerula on in >60 AM r source ML/MIN/1. filtratio data 73 SQUARE n rate METERSIf (GF this patient is -A merican, then multiply theresult by 1.210. Glucose 74 - 106 mg/dL Normal No Oct 6 [Mass/vol informati 2017 6:17 ume] in on in AM Serum or source Plasma data Potassium 3.5 - 5.1 mmoL/L Normal No Oct 6 informati 2017 6:17 [Moles/vo on in AM lume] in source Serum or data Plasma Sodium 136 - 145 mmoL/L Low No Oct 6 [Moles/vo informati 2017 6:17 lume] in on in AM Serum or source Plasma data Magnesium [Moles/volume] in Unspecified specimen Observa Value Referen Units Interpr Notes Date tion ce etation Range Magnesium 1.4 - 2.2 mg/dL Normal No Jan 24 informati 2016 3:40 [Moles/vo on in PM lume] in source Unspecifi data ed specimen Natriutietic peptide B [Mass/volume] in Serum or Plasma Observa Value Referen Units Interpr Notes Date tion ce etation Range Natriutie 0 - 100 pg/mL Normal No Jan 24 tic informati 2016 3:40 peptide B on in PM source [Mass/vol data ume] in Serum or Plasma Cardiac enzymes Observa Value Referen Units Interpr Notes Date tion ce etation Range Creatine 0 - 4.0 U/L Normal No Jan 24 kinase.MB informati 2016 3:40 /Creatine on in PM source kinase.to data charline [Ratio] in Serum or Plasma Creatine 0.0 - 3.6 ng/mL Normal No Jan 24 kinase.MB informati 2016 3:40 on in PM [Mass/vol source ume] in data Serum or Plasma Creatine 26 - 192 U/L Normal No Jan 24 kinase informati 2016 3:40 [Enzymati on in PM c source activity/ data volume] in Serum or Plasma Troponin 0.00 - ng/mL Normal No Jan 24 I.cardiac 0.06 informati 2016 3:40 on in PM [Mass/vol source ume] in data Serum or Plasma Comprehensive metabolic 2000 panel in Serum or Plasma Observa Value Referen Units Interpr Notes Date tion ce etation Range Albumin/G 1.1 - 1.8 No Normal No Jan 24 lobulin informati informati 2016 3:40 [Mass on in on in PM ratio] in source source Serum or data data Plasma Albumin 3.4 - 5.0 gm/dL Normal No Jan 24 [Mass/vol informati 2016 3:40 ume] in on in PM Serum or source Plasma data Alkaline 46 - 116 U/L Normal No Jan 24 phosphata informati 2016 3:40 se on in PM [Enzymati source c data activity/ volume] in Serum or Plasma Bilirubin 0.2 - 1.0 mg/dL Normal No Jan 24 .total informati 2016 3:40 [Mass/vol on in PM ume] in source Serum or data Plasma Urea 7 - 18 mg/dL Low No Jan 24 nitrogen informati 2016 3:40 [Mass/vol on in PM ume] in source Serum or data Plasma Calcium 8.5 - mg/dL Normal No Oct 5 [Mass/vol 10.1 informati 2016 3:40 ume] in on in PM Serum or source Plasma data Chloride 98 - 107 mmoL/L Low No Oct 5 [Moles/vo informati 2016 3:40 lume] in on in PM Serum or source Plasma data Carbon 21.0 - mmoL/L Normal No Oct 5 dioxide, 32.0 informati 2016 3:40 total on in PM [Moles/vo source lume] in data Serum or Plasma Creatinin 0.55 - mg/dL Normal No Oct 5 e 1.02 informati 2016 3:40 [Mass/vol on in PM ume] in source Serum or data Plasma Creatinin 50 - 200 ML/MIN Normal No Jan 5 e renal informati 2016 3:40 clearance on in PM source predicted data by Cockcroft -Gault formula Estimated 59- ML/MIN No REFERENCE Oct 5 informati RANGE: 2017 3:40 glomerula on in >60 PM r source ML/MIN/1. filtratio data 73 SQUARE n rate METERSIf (GF this patient is -A merican, then multiply theresult by 1.210. Globulin 1.3 - 3.2 gm/dL Normal No Oct 5 [Mass/vol informati 2016 3:40 ume] in on in PM Serum source data Glucose 74 - 106 mg/dL High No Jan 5 [Mass/vol informati 2016 3:40 ume] in on in PM Serum or source Plasma data Potassium 3.5 - 5.1 mmoL/L Low No Jan 5 informati 2016 3:40 [Moles/vo on in PM lume] in source Serum or data Plasma Sodium 136 - 145 mmoL/L Low No Oct 5 [Moles/vo informati 2016 3:40 lume] in on in PM Serum or source Plasma data Aspartate 15 - 37 U/L Normal No Jan 5 informati 2016 3:40 aminotran on in PM sferase source [Enzymati data c activity/ volume] in Serum or Plasma Alanine 12 - 78 U/L Normal No Oct 5 aminotran informati 2016 3:40 sferase on in PM [Enzymati source c data activity/ volume] in Serum or Plasma Protein 6.4 - 8.2 gm/dL Normal No Jan 5 [Mass/vol informati 2017 3:40 ume] in on in PM Serum or source Plasma data Lactate [Moles/volume] in Blood Observa Value Referen Units Interpr Notes Date tion ce etation Range Lactate 0.4 - 2.0 mmol/L Normal No Jan 5 [Moles/vo informati 2017 3:40 lume] in on in PM Blood source data Urinalysis dipstick W Reflex Microscopic panel in Urine Observa Value Referen Units Interpr Notes Date tion ce etation Range Appeara CLEAR CLEAR No No No Jan 24 nce of informa informa informa 2017 Urine tion in tion in tion in 3:40 PM source source source data data data Bacteri TRACE O No No No Jan 24 a informa informa informa 2016 [Presen tion in tion in tion in 3:40 PM ce] in source source source Urine data data data sedimen t by Light microsc opy Bilirub NEGATIV NEG No No No Jan 24 in E informa informa informa 2016 [Presen tion in tion in tion in 3:40 PM ce] in source source source Urine data data data by Test strip Erythro NEGATIV NEG No No No Jan 24 cytes E informa informa informa 2016 [Presen tion in tion in tion in 3:40 PM ce] in source source source Urine data data data Color YELLOW YELLOW No No No Jan 24 of informa informa informa 2017 Urine tion in tion in tion in 3:40 PM source source source data data data Glucose NEG No No No Jan 24 [Mass/vol informati informati informati 2017 3:40 ume] in on in on in on in PM Urine by source source source Test data data data strip Ketones NEGATIV NEG mg/dL No No Jan 24 E informa informa 2016 [Presen tion in tion in 3:40 PM ce] in source source Urine data data by Automat ed test strip Mucus NEGATIV NEG No No No Jan 24 [Presen E informa informa informa 2016 ce] in tion in tion in tion in 3:40 PM Urine source source source sedimen data data data t by Light microsc opy Nitrite NEGATIV NEG No No No Jan 24 E informa informa informa 2017 [Presen tion in tion in tion in 3:40 PM ce] in source source source Urine data data data by Test strip pH of 5.0 - 8.5 No Normal No Jan 24 Urine informati informati 2017 3:40 on in on in PM source source data data Protein NEG mg/dL No No Jan 24 [Mass/vol informati informati 2016 3:40 ume] in on in on in PM Urine by source source Automated data data test strip Erythro 5-10 0 rbc/hpf No No Jan 24 cytes informa informa 2016 [Presen tion in tion in 3:40 PM ce] in source source Urine data data sedimen t by Light microsc opy Specific 1.005 - No Normal No Jan 24 gravity 1.030 informati informati 2016 3:40 of Urine on in on in PM source source data data Epithel NONE 0 - 5 #/hpf No No Jan 24 ial informa informa 2016 cells.s tion in tion in 3:40 PM quamous source source data data [Presen ce] in Urine sedimen t by Microsc opy high power field Urobili 0.2 NEG E.U./dL No No Jan 24 nogen informa informa 2016 [Presen tion in tion in 3:40 PM ce] in source source Urine data data by Test strip Leukocyte O wbc/hpf No No Jan 24 s informati informati 2016 3:40 [#/volume on in on in PM ] in source source Urine data data Urinalysis dipstick W Reflex Microscopic panel in Urine Observa Value Referen Units Interpr Notes Date tion ce etation Range Appeara CLEAR CLEAR No No No Jan 24 nce of informa informa informa 2016 Urine tion in tion in tion in 3:40 PM source source source data data data Bilirub NEGATIV NEG No No No Jan 24 in E informa informa informa 2016 [Presen tion in tion in tion in 3:40 PM ce] in source source source Urine data data data by Test strip Erythro NEGATIV NEG No No No Jan 24 cytes E informa informa informa 2016 [Presen tion in tion in tion in 3:40 PM ce] in source source source Urine data data data Color YELLOW YELLOW No No No Jan 24 of informa informa informa 2016 Urine tion in tion in tion in 3:40 PM source source source data data data Glucose NEG No No No Jan 24 [Mass/vol informati informati ati 2016 3:40 ume] in on in on in on in PM Urine by source source source Test data data data strip Ketones NEGATIV NEG mg/dL No No Jan 24 E informa informa 2016 [Presen tion in tion in 3:40 PM ce] in source source Urine data data by Automat ed test strip Mucus NEGATIV NEG No No No Jan 24 [Presen E informa informa informa 2016 ce] in tion in tion in tion in 3:40 PM Urine source source source sedimen data data data t by Light microsc opy Nitrite NEGATIV NEG No No No Jan 24 E informa informa informa 2016 [Presen tion in tion in tion in 3:40 PM ce] in source source source Urine data data data by Test strip pH of 5.0 - 8.5 No Normal No Jan 24 Urine informati ati 2016 3:40 on in on in PM source source data data Protein NEG mg/dL No No Jan 24 [Mass/vol informati ati 2016 3:40 ume] in on in on in PM Urine by source source Automated data data test strip Specific 1.005 - No Normal No Jan 24 gravity 1.030 informati 2016 3:40 of Urine on in on in PM source source data data Urobili 0.2 NEG E.U./dL No No Jan 24 nogen informa inform2016 [Presen tion in tion in 3:40 PM ce] in source source Urine data data by Test strip CBC W Auto Differential panel in Blood Observa Value Referen Units Interpr Notes Date tion ce etation Range Basophils 0 - 0.2 K/MM3 Normal No Jan 242016 3:40 [#/volume on in PM ] in source Blood by data Automated count Basophils 0.1 - 2.0 % Normal No Jan 24 /100 2016 3:40 leukocyte on in PM s in source Blood by data Automated count Eosinophi 0.0 - 0.4 K/mm3 Normal No Jan 5 ls ati 2016 3:40 [#/volume on in PM ] in source Blood by data Automated count Eosinophi 0.1 - % Normal No Jan 24 ls/100 12.0 informati 2016 3:40 leukocyte on in PM s in source Blood by data Automated count Granulocy 1.8 - 7.8 K/mm3 Normal No Jan 24 natty informati 2016 3:40 [#/volume on in PM ] in source Blood by data Automated count Granulocy 37.0 - % Normal No Jan 24 natty/100 80.0 informati 2016 3:40 leukocyte on in PM s in source Blood by data Automated count Hematocri 37.0 - % Normal No Jan 24 t [Volume 47.0 informati 2016 3:40 on in PM Fraction] source of Blood data Hemoglobi 12.2 - g/dL Normal No Jan 24 n 16.2 informati 2016 3:40 [Mass/vol on in PM ume] in source Blood data Lymphocyt 0.7 - 4.5 K/mm3 Normal No Jan 24 es informati 2016 3:40 [#/volume on in PM ] in source Unspecifi data ed specimen by Automated count Lymphocyt 10 - 50.0 % Normal No Jan 24 es informati 2016 3:40 [#/volume on in PM ] in source Unspecifi data ed specimen by Automated count Erythrocy 27 - 31.2 pg High No Jan 24 te mean informati 2016 3:40 corpuscul on in PM ar source hemoglobi data n [Entitic mass] Erythrocy 31.8 - g/dl Normal No Jan 24 te mean 35.4 informati 2016 3:40 corpuscul on in PM ar source hemoglobi data n concentra tion [Mass/vol ume] by Automated count Erythrocy 82.2 - fl Normal No Jan 24 te mean 97.8 informati 2016 3:40 corpuscul on in PM ar volume source [Entitic data volume] by Automated count Monocytes 0.1 - 1.0 K/mm3 Normal No Jan 24 informati 2016 3:40 [#/volume on in PM ] in source Blood by data Automated count Monocytes 1.7 - 9.3 % Normal No Jan 24 /100 informati 2016 3:40 leukocyte on in PM s in source Blood by data Automated count Platelet 7.4 - fl Low No Jan 24 mean 10.4 informati 2016 3:40 volume on in PM [Entitic source volume] data in Blood by Automated count Platelets 142 - 424 K/mm3 Normal No Jan 24 informati 2017 3:40 [#/volume on in PM ] in source Blood data Erythrocy 4.2 - 5.4 M/mm3 Normal No Jan 24 natty informati 2016 3:40 [#/volume on in PM ] in source Amniotic data fluid Erythrocy 11.5 - % Normal No Jan 24 te 17.5 informati 2016 3:40 distribut on in PM ion width source [Entitic data volume] by Automated count Leukocyte 4.8 - K/MM3 Normal No Jan 24 s 10.8 informati 2016 3:40 [#/volume on in PM ] in source Blood data Basic metabolic panel in Blood Observa Value Referen Units Interpr Notes Date tion ce etation Range Urea 7 - 18 mg/dL Normal No Sep 12 nitrogen informati 2016 8:45 [Mass/vol on in PM ume] in source Serum or data Plasma Calcium 8.5 - mg/dL Normal No Sep 12 [Mass/vol 10.1 informati 2016 8:45 ume] in on in PM Serum or source Plasma data Chloride 98 - 107 mmoL/L Normal No Sep 12 [Moles/vo informati 2017 8:45 lume] in on in PM Serum or source Plasma data Carbon 21.0 - mmoL/L Normal No Sep 12 dioxide, 32.0 informati 2016 8:45 total on in PM [Moles/vo source lume] in data Serum or Plasma Creatinin 0.55 - mg/dL Normal No Sep 12 e 1.02 informati 2016 8:45 [Mass/vol on in PM ume] in source Serum or data Plasma Creatinin 50 - 200 ML/MIN Normal No Sep 12 e renal informati 2017 8:45 clearance on in PM source predicted data by Cockcroft -Gault formula Estimated 59- ML/MIN No REFERENCE Sep 12 informati RANGE: 2017 8:45 glomerula on in >60 PM r source ML/MIN/1. filtratio data 73 SQUARE n rate METERSIf (GF this patient is -A merican, then multiply theresult by 1.210. Glucose 74 - 106 mg/dL Normal No Sep 12 [Mass/vol informati 2016 8:45 ume] in on in PM Serum or source Plasma data Potassium 3.5 - 5.1 mmoL/L Normal No Sep 12 informati 2016 8:45 [Moles/vo on in PM lume] in source Serum or data Plasma Sodium 136 - 145 mmoL/L Normal No Sep 12 [Moles/vo informati 2017 8:45 lume] in on in PM Serum or source Plasma data CBC W Auto Differential panel in Blood Observa Value Referen Units Interpr Notes Date tion ce etation Range Basophils 0 - 0.2 K/MM3 Normal No Sep 12 informati 2016 8:45 [#/volume on in PM ] in source Blood by data Automated count Basophils 0.1 - 2.0 % Normal No Sep 12 /100 informati 2016 8:45 leukocyte on in PM s in source Blood by data Automated count Eosinophi 0.0 - 0.4 K/mm3 Normal No Sep 12 ls informati 2017 8:45 [#/volume on in PM ] in source Blood by data Automated count Eosinophi 0.1 - % Normal No Sep 12 ls/100 12.0 informati 2016 8:45 leukocyte on in PM s in source Blood by data Automated count Granulocy 1.8 - 7.8 K/mm3 Normal No Sep 12 natty informati 2016 8:45 [#/volume on in PM ] in source Blood by data Automated count Granulocy 37.0 - % Normal No Sep 12 natty/100 80.0 informati 2017 8:45 leukocyte on in PM s in source Blood by data Automated count Hematocri 37.0 - % Normal No Sep 12 t [Volume 47.0 informati 2016 8:45 on in PM Fraction] source of Blood data Hemoglobi 12.2 - g/dL Normal No Sep 12 n 16.2 informati 2016 8:45 [Mass/vol on in PM ume] in source Blood data Lymphocyt 0.7 - 4.5 K/mm3 Normal No Sep 12 es informati 2016 8:45 [#/volume on in PM ] in source Unspecifi data ed specimen by Automated count Lymphocyt 10 - 50.0 % Normal No Sep 12 es informati 2016 8:45 [#/volume on in PM ] in source Unspecifi data ed specimen by Automated count Erythrocy 27 - 31.2 pg High No Sep 12 te mean informati 2016 8:45 corpuscul on in PM ar source hemoglobi data n [Entitic mass] Erythrocy 31.8 - g/dl Normal No Sep 12 te mean 35.4 informati 2016 8:45 corpuscul on in PM ar source hemoglobi data n concentra tion [Mass/vol ume] by Automated count Erythrocy 82.2 - fl Normal No Sep 12 te mean 97.8 informati 2016 8:45 corpuscul on in PM ar volume source [Entitic data volume] by Automated count Monocytes 0.1 - 1.0 K/mm3 Normal No Sep 12 inform2016 8:45 [#/volume on in PM ] in source Blood by data Automated count Monocytes 1.7 - 9.3 % Normal No Sep 12 /100 informati 2016 8:45 leukocyte on in PM s in source Blood by data Automated count Platelet 7.4 - fl Low No Sep 12 mean 10.4 informati 2016 8:45 volume on in PM [Entitic source volume] data in Blood by Automated count Platelets 142 - 424 K/mm3 Normal No Sep 12 informati 2016 8:45 [#/volume on in PM ] in source Blood data Erythrocy 4.2 - 5.4 M/mm3 Low No Sep 12 natty informati 2016 8:45 [#/volume on in PM ] in source Amniotic data fluid Erythrocy 11.5 - % Normal No Sep 12 te 17.5 informati 2016 8:45 distribut on in PM ion width source [Entitic data volume] by Automated count Leukocyte 4.8 - K/MM3 Normal No Sep 12 s 10.8 informati 2016 8:45 [#/volume on in PM ] in source Blood data Triiodothyronine (T3) Free [Mass/volume] in Serum or Plasma Observa Value Referen Units Interpr Notes Date ti ce etation Range Triiodoth 2.0 - 4.4 pg/mL No Performed Nov 29 yronine informati at: CB 2017 (T3) Free on in - [facility] 10:03 AM source [Mass/vol data [id number] ume] in [address], [place], [place] [id number] [employer]: Vijay Salter PhD, Phone: [phone] Thyroxine (T4) free [Mass/volume] in Serum or Plasma Observa Value Referen Units Interpr Notes Date tion ce etation Range Thyroxine 0.76 - ng/dL Normal No Nov 29 (T4) 1.46 informati 2016 free on in 10:03 AM [Mass/vol source ume] in data Serum or Plasma Thyrotropin [Units/volume] in Serum or Plasma Observa Value Referen Units Interpr Notes Date tion ce etation Range Thyrotrop 0.358 - uIU/ml Low No Nov 29 in 3.740 informati 2016 [Units/vo on in 10:03 AM lume] in source Serum or data Plasma Lipid 1996 panel in Serum or Plasma Observa Value Referen Units Interpr Notes Date tion ce etation Range Cholester < 200 mg/dL No No Nov 29 ol informati informati 2016 [Moles/vo on in on in 10:02 AM lume] in source source Unspecifi data data ed specimen Cholester 40 - 60 MG/DL High No Nov 29 ol in HDL informati 2016 on in 10:02 AM [Mass/vol source ume] in data Serum or Plasma Cholester 0 - 130 mg/dL Normal No Nov 29 ol in LDL inform2016 on in 10:02 AM [Mass/vol source ume] in data Serum or Plasma by calculati on Triglycer 30 - 200 mg/dL Normal No Nov 29 juan miguel informati 2016 [Moles/vo on in 10:02 AM lume] in source Serum or data Plasma Cholester 0 - 40 No Normal No Nov 29 ol in informati informati 2016 VLDL on in on in 10:02 AM [Mass/vol source source ume] in data data Serum or Plasma Hepatic function 2000 panel in Serum or Plasma Observa Value Referen Units Interpr Notes Date tion ce etation Range Albumin 3.4 - 5.0 gm/dL Normal No Nov 29 [Mass/vol informati 2016 ume] in on in 10:02 AM Serum or source Plasma data Alkaline 46 - 116 U/L Normal No Nov 29 phosphata ati 2016 se on in 10:02 AM [Enzymati source c data activity/ volume] in Serum or Plasma Bilirubin 0.0 - 0.2 mg/dL Normal No Nov 29 .direct informati 2016 [Mass/vol on in 10:02 AM ume] in source Serum or data Plasma Bilirubin 0 - 0.9 mg/dL Normal No Nov 29 .indirect informati 2017 on in 10:02 AM [Mass/vol source ume] in data Serum or Plasma Bilirubin 0.2 - 1.0 mg/dL Normal No Nov 29 .total informati 2017 [Mass/vol on in 10:02 AM ume] in source Serum or data Plasma Aspartate 15 - 37 U/L Normal No Nov 29 inform2016 aminotran on in 10:02 AM sferase source [Enzymati data c activity/ volume] in Serum or Plasma Alanine 12 - 78 U/L Normal No Nov 29 aminotran informati 2016 sferase on in 10:02 AM [Enzymati source c data activity/ volume] in Serum or Plasma Protein 6.4 - 8.2 gm/dL Normal No Nov 29 [Mass/vol informati 2016 ume] in on in 10:02 AM Serum or source Plasma data MISCELLANEOUS TEST Observa Value Referen Units Interpr Notes Date tion ce etation Range MISCELL COMMENT No No No CATECHO Sep 22 ANEOUS informa informa informa LAMINES 2017 TEST tion in tion in tion in ,UR.,FR source source source EE,24 data data data HR UNITS REFEREN CEEPINE PHRINE, URINE 12 UG/L UNDEFIN EDEPINE PHRINE, U, 24HR 24 HIGH UG/24HR 0 - 20NOREP INEPHRI NE, UR 25 UG/L UNDEFIN EDNOREP INEPHRI NE, U, 24HR 50 UG/24HR 0 - 135DOPA MINE, URINE 87 UG/L UNDEFIN EDDOPAM INE, UR, 24HR 174 UG/24HR 0- 510 Thyroxine (T4) free [Mass/volume] in Serum or Plasma Observa Value Referen Units Interpr Notes Date ti ce etation Range Thyroxine 0.76 - ng/dL Normal No Sep 20 (T4) 1.46 informati 2017 free on in 12:55 PM [Mass/vol source ume] in data Serum or Plasma Comprehensive metabolic 2000 panel in Serum or Plasma Observa Value Referen Units Interpr Notes Date ti ce etation Range Albumin/G 1.1 - 1.8 No Normal No Sep 20 lobulin informati informati 2016 [Mass on in on in 12:54 PM ratio] in source source Serum or data data Plasma Albumin 3.4 - 5.0 gm/dL Normal No Sep 20 [Mass/vol informati 2017 ume] in on in 12:54 PM Serum or source Plasma data Alkaline 46 - 116 U/L Normal No Sep 20 phosphata informati 2016 se on in 12:54 PM [Enzymati source c data activity/ volume] in Serum or Plasma Bilirubin 0.2 - 1.0 mg/dL Normal No Erlin 1 .total informati 2017 [Mass/vol on in 12:54 PM ume] in source Serum or data Plasma Urea 7 - 18 mg/dL Normal No Erlin 1 nitrogen informati 2017 [Mass/vol on in 12:54 PM ume] in source Serum or data Plasma Calcium 8.5 - mg/dL Normal No Erlin 1 [Mass/vol 10.1 informati 2017 ume] in on in 12:54 PM Serum or source Plasma data Chloride 98 - 107 mmoL/L Normal No Erlin 1 [Moles/vo informati 2017 lume] in on in 12:54 PM Serum or source Plasma data Carbon 21.0 - mmoL/L Normal No Erlin 1 dioxide, 32.0 informati 2017 total on in 12:54 PM [Moles/vo source lume] in data Serum or Plasma Creatinin 0.55 - mg/dL Normal No Erlin 1 e 1.02 informati 2017 [Mass/vol on in 12:54 PM ume] in source Serum or data Plasma Estimated 59- ML/MIN No REFERENCE Erlin 1 informati RANGE: 2017 glomerula on in >60 12:54 PM r source ML/MIN/1. filtratio data 73 SQUARE n rate METERSIf (GF this patient is -A merican, then multiply theresult by 1.210. Globulin 1.3 - 3.2 gm/dL Normal No Erlin 1 [Mass/vol informati 2017 ume] in on in 12:54 PM Serum source data Glucose 74 - 106 mg/dL Normal No Erlin 1 [Mass/vol informati 2017 ume] in on in 12:54 PM Serum or source Plasma data Potassium 3.5 - 5.1 mmoL/L Normal No Erlin 1 informati 2017 [Moles/vo on in 12:54 PM lume] in source Serum or data Plasma Sodium 136 - 145 mmoL/L Low No Erlin 1 [Moles/vo informati 2017 lume] in on in 12:54 PM Serum or source Plasma data Aspartate 15 - 37 U/L Normal No Erlin 1 informati 2016 aminotran on in 12:54 PM sferase source [Enzymati data c activity/ volume] in Serum or Plasma Alanine 12 - 78 U/L Normal No Erlin 1 aminotran informati 2016 sferase on in 12:54 PM [Enzymati source c data activity/ volume] in Serum or Plasma Protein 6.4 - 8.2 gm/dL Normal No Sep 20 [Mass/vol informati 2017 ume] in on in 12:54 PM Serum or source Plasma data Thyrotropin [Units/volume] in Serum or Plasma Observa Value Referen Units Interpr Notes Date ti ce etation Range Thyrotrop 0.358 - uIU/ml High No Sep 20 in 3.740 informati 2016 [Units/vo on in 12:54 PM lume] in source Serum or data Plasma Troponin I.cardiac [Mass/volume] in Serum or Plasma Observa Value Referen Units Interpr Notes Date ti ce etation Range Troponin 0.00 - ng/mL High 0.04 - September 17 I.cardiac 0.06 0.49 IS 2016 9:28 AN PM [Mass/vol INDETERMI ume] in NANT Serum or ZONEAnd Plasma can be consisten t with the following diseases: Trauma Criticall y ill patients Art >30% TBSACHF Hypothyro idism Amyloidos isHyperte nsion Myocardit is SepsisHyp otension Rhabdomyo lysis Vital exhaust.P ostop surgery Pulmonary embolism CVARenal failure Acute neurologi anamika disease Atrial fib. Cardiac enzymes Observa Value Referen Units Interpr Notes Date ti ce etation Range Creatine 0 - 4.0 U/L Normal No September 17 kinase.MB informati 2016 7:00 /Creatine on in PM source kinase.to data charline [Ratio] in Serum or Plasma Creatine 0.0 - 3.6 ng/mL Normal No September 17 kinase.MB informati 2016 7:00 on in PM [Mass/vol source ume] in data Serum or Plasma Creatine 26 - 192 U/L Normal No September 17 kinase informati 2017 7:00 [Enzymati on in PM c source activity/ data volume] in Serum or Plasma Troponin 0.00 - ng/mL High 0.04 - September 17 I.cardiac 0.06 0.49 IS 2016 7:00 AN PM [Mass/vol INDETERMI ume] in NANT Serum or ZONEAnd Plasma can be consisten t with the following diseases: Trauma Criticall y ill patients Art >30% TBSACHF Hypothyro idism Amyloidos isHyperte nsion Myocardit is SepsisHyp otension Rhabdomyo lysis Vital exhaust.P ostop surgery Pulmonary embolism CVARenal failure Acute neurologi anamika disease Atrial fib. Comprehensive metabolic 2000 panel in Serum or Plasma Observa Value Referen Units Interpr Notes Date tion ce etation Range Albumin/G 1.1 - 1.8 No Normal No September 17 lobulin informati informati 2016 7:00 [Mass on in on in PM ratio] in source source Serum or data data Plasma Albumin 3.4 - 5.0 gm/dL Normal No September 17 [Mass/vol informati 2016 7:00 ume] in on in PM Serum or source Plasma data Alkaline 46 - 116 U/L Normal No September 17 phosphata informati 2016 7:00 se on in PM [Enzymati source c data activity/ volume] in Serum or Plasma Bilirubin 0.2 - 1.0 mg/dL Normal No September 17 .total informati 2016 7:00 [Mass/vol on in PM ume] in source Serum or data Plasma Urea 7 - 18 mg/dL Low No September 17 nitrogen informati 2016 7:00 [Mass/vol on in PM ume] in source Serum or data Plasma Calcium 8.5 - mg/dL Normal No September 17 [Mass/vol 10.1 informati 2016 7:00 ume] in on in PM Serum or source Plasma data Chloride 98 - 107 mmoL/L Normal No September 17 [Moles/vo informati 2016 7:00 lume] in on in PM Serum or source Plasma data Carbon 21.0 - mmoL/L Normal No September 17 dioxide, 32.0 informati 2016 7:00 total on in PM [Moles/vo source lume] in data Serum or Plasma Creatinin 0.55 - mg/dL Normal No September 17 e 1.02 informati 2016 7:00 [Mass/vol on in PM ume] in source Serum or data Plasma Creatinin 50 - 200 ML/MIN Low No September 17 e renal informati 2016 7:00 clearance on in PM source predicted data by Cockcroft -Gault formula Estimated 59- ML/MIN No REFERENCE September 17 informati RANGE: 2017 7:00 glomerula on in >60 PM r source ML/MIN/1. filtratio data 73 SQUARE n rate METERSIf (GF this patient is -A merican, then multiply theresult by 1.210. Globulin 1.3 - 3.2 gm/dL Normal No September 17 [Mass/vol informati 2016 7:00 ume] in on in PM Serum source data Glucose 74 - 106 mg/dL High No September 17 [Mass/vol informati 2016 7:00 ume] in on in PM Serum or source Plasma data Potassium 3.5 - 5.1 mmoL/L Normal No September 172016 7:00 [Moles/vo on in PM lume] in source Serum or data Plasma Sodium 136 - 145 mmoL/L Low No September 17 [Moles/vo informati 2016 7:00 lume] in on in PM Serum or source Plasma data Aspartate 15 - 37 U/L Normal No September 172016 7:00 aminotran on in PM sferase source [Enzymati data c activity/ volume] in Serum or Plasma Alanine 12 - 78 U/L Normal No September 17 aminotran informati 2016 7:00 sferase on in PM [Enzymati source c data activity/ volume] in Serum or Plasma Protein 6.4 - 8.2 gm/dL Normal No September 17 [Mass/vol informati 2016 7:00 ume] in on in PM Serum or source Plasma data CBC W Auto Differential panel in Blood Observa Value Referen Units Interpr Notes Date tion ce etation Range Basophils 0 - 0.2 K/MM3 Normal No September 172016 7:00 [#/volume on in PM ] in source Blood by data Automated count Basophils 0.1 - 2.0 % Normal No September 17 / informati 2016 7:00 leukocyte on in PM s in source Blood by data Automated count Eosinophi 0.0 - 0.4 K/mm3 Normal No September 17 ls informati 2016 7:00 [#/volume on in PM ] in source Blood by data Automated count Eosinophi 0.1 - % Normal September 17 ls/100 12.0 informati 2016 7:00 leukocyte on in PM s in source Blood by data Automated count Granulocy 1.8 - 7.8 K/mm3 Normal No September 17 natty informati 2016 7:00 [#/volume on in PM ] in source Blood by data Automated count Granulocy 37.0 - % Normal September 17 natty/100 80.0 informati 2016 7:00 leukocyte on in PM s in source Blood by data Automated count Hematocri 37.0 - % Normal No September 17 t [Volume 47.0 informati 2016 7:00 on in PM Fraction] source of Blood data Hemoglobi 12.2 - g/dL Normal No September 17 n 16.2 informati 2016 7:00 [Mass/vol on in PM ume] in source Blood data Lymphocyt 0.7 - 4.5 K/mm3 Normal No September 17 es informati 2016 7:00 [#/volume on in PM ] in source Unspecifi data ed specimen by Automated count Lymphocyt 10 - 50.0 % Normal No September 17 es informati 2016 7:00 [#/volume on in PM ] in source Unspecifi data ed specimen by Automated count Erythrocy 27 - 31.2 pg High No September 17 te mean informati 2016 7:00 corpuscul on in PM ar source hemoglobi data n [Entitic mass] Erythrocy 31.8 - g/dl Normal No September 17 te mean 35.4 informati 2016 7:00 corpuscul on in PM ar source hemoglobi data n concentra tion [Mass/vol ume] by Automated count Erythrocy 82.2 - fl Normal No September 17 te mean 97.8 informati 2016 7:00 corpuscul on in PM ar volume source [Entitic data volume] by Automated count Monocytes 0.1 - 1.0 K/mm3 Normal No September 17 informati 2016 7:00 [#/volume on in PM ] in source Blood by data Automated count Monocytes 1.7 - 9.3 % Normal No September 17 /100 informati 2016 7:00 leukocyte on in PM s in source Blood by data Automated count Platelet 7.4 - fl Low No September 17 mean 10.4 informati 2016 7:00 volume on in PM [Entitic source volume] data in Blood by Automated count Platelets 142 - 424 K/mm3 Normal No September 17 informati 2016 7:00 [#/volume on in PM ] in source Blood data Erythrocy 4.2 - 5.4 M/mm3 Normal No September 17 natty informati 2016 7:00 [#/volume on in PM ] in source Amniotic data fluid Erythrocy 11.5 - % Normal No September 17 te 17.5 informati 2016 7:00 distribut on in PM ion width source [Entitic data volume] by Automated count Leukocyte 4.8 - K/MM3 Normal No September 17 s 10.8 informati 2016 7:00 [#/volume on in PM ] in source Blood data CBC W Auto Differential panel in Blood Observa Value Referen Units Interpr Notes Date tion ce etation Range Basophils 0 - 0.2 K/MM3 Normal No September 12 informati 2016 6:15 [#/volume on in AM ] in source Blood by data Automated count Basophils 0.1 - 2.0 % Normal No September 12 / informati 2016 6:15 leukocyte on in AM s in source Blood by data Automated count Eosinophi 0.0 - 0.4 K/mm3 Normal No September 12 ls informati 2016 6:15 [#/volume on in AM ] in source Blood by data Automated count Eosinophi 0.1 - % Normal No September 12 ls/100 12.0 informati 2016 6:15 leukocyte on in AM s in source Blood by data Automated count Granulocy 1.8 - 7.8 K/mm3 Normal No September 12 natty informati 2016 6:15 [#/volume on in AM ] in source Blood by data Automated count Granulocy 37.0 - % Normal No September 12 natty/100 80.0 informati 2016 6:15 leukocyte on in AM s in source Blood by data Automated count Hematocri 37.0 - % Normal No September 12 t [Volume 47.0 informati 2016 6:15 on in AM Fraction] source of Blood data Hemoglobi 12.2 - g/dL Normal No September 12 n 16.2 informati 2016 6:15 [Mass/vol on in AM ume] in source Blood data Lymphocyt 0.7 - 4.5 K/mm3 Normal No September 12 es informati 2016 6:15 [#/volume on in AM ] in source Unspecifi data ed specimen by Automated count Lymphocyt 10 - 50.0 % Normal No September 12 es informati 2016 6:15 [#/volume on in AM ] in source Unspecifi data ed specimen by Automated count Erythrocy 27 - 31.2 pg Normal No September 12 te mean informati 2016 6:15 corpuscul on in AM ar source hemoglobi data n [Entitic mass] Erythrocy 31.8 - g/dl Normal No September 12 te mean 35.4 informati 2016 6:15 corpuscul on in AM ar source hemoglobi data n concentra tion [Mass/vol ume] by Automated count Erythrocy 82.2 - fl Normal No September 12 te mean 97.8 informati 2016 6:15 corpuscul on in AM ar volume source [Entitic data volume] by Automated count Monocytes 0.1 - 1.0 K/mm3 Normal No September 12 informati 2016 6:15 [#/volume on in AM ] in source Blood by data Automated count Monocytes 1.7 - 9.3 % Normal No September 12 /100 informati 2016 6:15 leukocyte on in AM s in source Blood by data Automated count Platelet 7.4 - fl Low No September 12 mean 10.4 informati 2016 6:15 volume on in AM [Entitic source volume] data in Blood by Automated count Platelets 142 - 424 K/mm3 Normal No September 12 informati 2016 6:15 [#/volume on in AM ] in source Blood data Erythrocy 4.2 - 5.4 M/mm3 Low No September 12 natty informati 2016 6:15 [#/volume on in AM ] in source Amniotic data fluid Erythrocy 11.5 - % Normal No September 12 te 17.5 informati 2016 6:15 distribut on in AM ion width source [Entitic data volume] by Automated count Leukocyte 4.8 - K/MM3 Normal No September 12 s 10.8 informati 2016 6:15 [#/volume on in AM ] in source Blood data Basic metabolic panel in Blood Observa Value Referen Units Interpr Notes Date tion ce etation Range Urea 7 - 18 mg/dL Normal No September 12 nitrogen informati 2016 6:15 [Mass/vol on in AM ume] in source Serum or data Plasma Calcium 8.5 - mg/dL Normal No September 12 [Mass/vol 10.1 informati 2016 6:15 ume] in on in AM Serum or source Plasma data Chloride 98 - 107 mmoL/L Normal No September 12 [Moles/vo informati 2016 6:15 lume] in on in AM Serum or source Plasma data Carbon 21.0 - mmoL/L Normal No September 12 dioxide, 32.0 informati 2016 6:15 total on in AM [Moles/vo source lume] in data Serum or Plasma Creatinin 0.55 - mg/dL Normal No September 12 e 1.02 informati 2016 6:15 [Mass/vol on in AM ume] in source Serum or data Plasma Creatinin 50 - 200 ML/MIN Normal No September 12 e renal informati 2016 6:15 clearance on in AM source predicted data by Cockcroft -Gault formula Estimated 59- ML/MIN No REFERENCE September 12 informati RANGE: 2017 6:15 glomerula on in >60 AM r source ML/MIN/1. filtratio data 73 SQUARE n rate METERSIf (GF this patient is -A merican, then multiply theresult by 1.210. Glucose 74 - 106 mg/dL Normal No September 12 [Mass/vol informati 2016 6:15 ume] in on in AM Serum or source Plasma data Potassium 3.5 - 5.1 mmoL/L Normal No September 12 informati 2016 6:15 [Moles/vo on in AM lume] in source Serum or data Plasma Sodium 136 - 145 mmoL/L Normal No September 12 [Moles/vo informati 2016 6:15 lume] in on in AM Serum or source Plasma data Troponin I.cardiac [Mass/volume] in Serum or Plasma Observa Value Referen Units Interpr Notes Date tion ce etation Range Troponin 0.00 - ng/mL High September 11 I.cardiac 0.06 2016 CRITICAL 10:04 PM [Mass/vol RESULTS ume] in Serum or RESU Plasma LTS CALLED TO: CARLITOS De La Cruz 09/11/16 2251 Erin Landa ictoria> 0.5 IS CONSISTEN T WITH MYOCARDIA L ISCHEMIA OR INFARCTIO N Troponin I.cardiac [Mass/volume] in Serum or Plasma Observa Value Referen Units Interpr Notes Date tion ce etation Range Troponin 0.00 - ng/mL High September 11 I.cardiac 0.06 2016 6:53 CRITICAL PM [Mass/vol RESULTS ume] in Serum or RESU Plasma LTS CALLED TO: BROCK Castillo 09/11/16 1930 Diana Guzman neha> 0.5 IS CONSISTEN T WITH MYOCARDIA L ISCHEMIA OR INFARCTIO N Cardiac enzymes Observa Value Referen Units Interpr Notes Date tion ce etation Range Creatine 0 - 4.0 U/L Normal No September 11 kinase.MB informati 2016 2:35 /Creatine on in PM source kinase.to data charline [Ratio] in Serum or Plasma Creatine 0.0 - 3.6 ng/mL Normal No September 11 kinase.MB informati 2016 2:35 on in PM [Mass/vol source ume] in data Serum or Plasma Creatine 26 - 192 U/L Normal No September 11 kinase informati 2016 2:35 [Enzymati on in PM c source activity/ data volume] in Serum or Plasma Troponin 0.00 - ng/mL High 0.04 - September 11 I.cardiac 0.06 0.49 IS 2017 2:35 AN PM [Mass/vol INDETERMI ume] in NANT Serum or ZONEAnd Plasma can be consisten t with the following diseases: Trauma Criticall y ill patients Art >30% TBSACHF Hypothyro idism Amyloidos isHyperte nsion Myocardit is SepsisHyp otension Rhabdomyo lysis Vital exhaust.P ostop surgery Pulmonary embolism CVARenal failure Acute neurologi anamika disease Atrial fib. Comprehensive metabolic 2000 panel in Serum or Plasma Observa Value Referen Units Interpr Notes Date tion ce etation Range Albumin/G 1.1 - 1.8 No Normal No September 11 lobulin informati informati 2016 2:35 [Mass on in on in PM ratio] in source source Serum or data data Plasma Albumin 3.4 - 5.0 gm/dL Normal No September 11 [Mass/vol informati 2016 2:35 ume] in on in PM Serum or source Plasma data Alkaline 46 - 116 U/L Normal No September 11 phosphata informati 2016 2:35 se on in PM [Enzymati source c data activity/ volume] in Serum or Plasma Bilirubin 0.2 - 1.0 mg/dL Normal No September 11 .total informati 2016 2:35 [Mass/vol on in PM ume] in source Serum or data Plasma Urea 7 - 18 mg/dL Low No September 11 nitrogen informati 2016 2:35 [Mass/vol on in PM ume] in source Serum or data Plasma Calcium 8.5 - mg/dL Normal No September 11 [Mass/vol 10.1 informati 2016 2:35 ume] in on in PM Serum or source Plasma data Chloride 98 - 107 mmoL/L Normal No September 11 [Moles/vo informati 2016 2:35 lume] in on in PM Serum or source Plasma data Carbon 21.0 - mmoL/L Normal No September 11 dioxide, 32.0 informati 2016 2:35 total on in PM [Moles/vo source lume] in data Serum or Plasma Creatinin 0.55 - mg/dL Normal No September 11 e 1.02 informati 2016 2:35 [Mass/vol on in PM ume] in source Serum or data Plasma Creatinin 50 - 200 ML/MIN Low No September 11 e renal informati 2016 2:35 clearance on in PM source predicted data by Cockcroft -Gault formula Estimated 59- ML/MIN No REFERENCE September 11 informati RANGE: 2017 2:35 glomerula on in >60 PM r source ML/MIN/1. filtratio data 73 SQUARE n rate METERSIf (GF this patient is -A merican, then multiply theresult by 1.210. Globulin 1.3 - 3.2 gm/dL High No September 11 [Mass/vol informati 2016 2:35 ume] in on in PM Serum source data Glucose 74 - 106 mg/dL High No September 11 [Mass/vol informati 2016 2:35 ume] in on in PM Serum or source Plasma data Potassium 3.5 - 5.1 mmoL/L Normal No September 112016 2:35 [Moles/vo on in PM lume] in source Serum or data Plasma Sodium 136 - 145 mmoL/L Low No September 11 [Moles/vo inform2016 2:35 lume] in on in PM Serum or source Plasma data Aspartate 15 - 37 U/L Normal No September 11 inform2016 2:35 aminotran on in PM sferase source [Enzymati data c activity/ volume] in Serum or Plasma Alanine 12 - 78 U/L Normal No September 11 aminotran inform2016 2:35 sferase on in PM [Enzymati source c data activity/ volume] in Serum or Plasma Protein 6.4 - 8.2 gm/dL High No September 11 [Mass/vol informati 2016 2:35 ume] in on in PM Serum or source Plasma data CBC W Auto Differential panel in Blood Observa Value Referen Units Interpr Notes Date tion ce etation Range Basophils 0 - 0.2 K/MM3 Normal No September 11 informati 2016 2:35 [#/volume on in PM ] in source Blood by data Automated count Basophils 0.1 - 2.0 % Normal No September 11 informati 2016 2:35 leukocyte on in PM s in source Blood by data Automated count Eosinophi 0.0 - 0.4 K/mm3 Normal No September 11 ls 2016 2:35 [#/volume on in PM ] in source Blood by data Automated count Eosinophi 0.1 - % Normal No September 11 ls/100 12.0 informati 2016 2:35 leukocyte on in PM s in source Blood by data Automated count Granulocy 1.8 - 7.8 K/mm3 Normal No September 11 natty informati 2016 2:35 [#/volume on in PM ] in source Blood by data Automated count Granulocy 37.0 - % Normal No September 11 natty/100 80.0 informati 2016 2:35 leukocyte on in PM s in source Blood by data Automated count Hematocri 37.0 - % Normal No September 11 t [Volume 47.0 informati 2016 2:35 on in PM Fraction] source of Blood data Hemoglobi 12.2 - g/dL No September 11 n 16.2 informati informati 2016 2:35 [Mass/vol on in on in PM ume] in source source Blood data data Lymphocyt 0.7 - 4.5 K/mm3 Normal No September 11 es informati 2016 2:35 [#/volume on in PM ] in source Unspecifi data ed specimen by Automated count Lymphocyt 10 - 50.0 % Normal No September 11 es informati 2016 2:35 [#/volume on in PM ] in source Unspecifi data ed specimen by Automated count Erythrocy 27 - 31.2 pg High No September 11 te mean informati 2016 2:35 corpuscul on in PM ar source hemoglobi data n [Entitic mass] Erythrocy 31.8 - g/dl Normal No September 11 te mean 35.4 informati 2016 2:35 corpuscul on in PM ar source hemoglobi data n concentra tion [Mass/vol ume] by Automated count Erythrocy 82.2 - fl Normal No September 11 te mean 97.8 informati 2016 2:35 corpuscul on in PM ar volume source [Entitic data volume] by Automated count Monocytes 0.1 - 1.0 K/mm3 Normal No September 11 informati 2016 2:35 [#/volume on in PM ] in source Blood by data Automated count Monocytes 1.7 - 9.3 % Normal No September 11 informati 2016 2:35 leukocyte on in PM s in source Blood by data Automated count Platelet 7.4 - fl Low No September 11 mean 10.4 informati 2016 2:35 volume on in PM [Entitic source volume] data in Blood by Automated count Platelets 142 - 424 K/mm3 Normal No September 11 informati 2017 2:35 [#/volume on in PM ] in source Blood data Erythrocy 4.2 - 5.4 M/mm3 Normal No September 11 natty informati 2017 2:35 [#/volume on in PM ] in source Amniotic data fluid Erythrocy 11.5 - % Normal No September 11 te 17.5 informati 2017 2:35 distribut on in PM ion width source [Entitic data volume] by Automated count Leukocyte 4.8 - K/MM3 Normal No September 11 s 10.8 informati 2017 2:35 [#/volume on in PM ] in source Blood data
--- OUTSIDE RECORDS SUMMARY | 2017-01-31 20:32 | External Medical Summary Rpt ---
[...] - [facility] 10:03 AM source [Mass/vol data [id number] ume] in [address], Plasma [place], [place] [id number] Auto Wrecker: Vijay Salter PhD, Phone: [phone] Thyroxine (T4) free [Mass/volume] in Serum [...] /Creatine on in PM source kinase.to data hcarline [Ratio] in Serum or Plasma Creatine 0.0 [...]
--- OUTSIDE RECORDS SUMMARY | 2017-01-31 21:38 | External Medical Summary Rpt | CCD ---
Demographics Preferred Language German Marital Status Unknown Sikhism Affiliation Unknown Race Unknown Ethnic Group Unknown Author Author , SHARATH EARLY Address Unknown Phone Immunization No patient found.
--- OUTSIDE RECORDS SUMMARY | 2017-01-31 21:38 | External Medical Summary Rpt | CCD ---
Author Author , SHARATH EARLY Address Unknown Phone [email or web address] Purpose Continuity of Care Document - 09-11-2016 [...]
--- OUTSIDE RECORDS SUMMARY | 2017-01-31 21:38 | External Medical Summary Rpt | CCD ---
Author Author , SHARATH EARLY Address Unknown Phone [email or web address] Purpose Continuity of Care Document - 09-11-2016 [...]
--- OUTSIDE RECORDS SUMMARY | 2017-01-31 21:38 | External Medical Summary Rpt | CCD ---
Demographics Preferred Language Yakut Marital Status Unknown Christianity Affiliation Unknown Race Unknown Ethnic Group Unknown Author Author , SHARATH EARLY Address Unknown Phone Immunization No patient found.
--- OUTSIDE RECORDS SUMMARY | 2017-01-31 21:39 | External Medical Summary Rpt ---
[...] - [facility] 10:03 AM source [Mass/vol data [id number] ume] in [address], Plasma [place], [place] [id number] Foundation Drill Operator: Vijay Salter PhD, Phone: [phone] Thyroxine (T4) free [Mass/volume] in Serum [...]
--- OUTSIDE RECORDS SUMMARY | 2017-01-31 21:39 | External Medical Summary Rpt ---
[...] - [facility] 10:03 AM source [Mass/vol data [id number] ume] in [address], [place], [place] [id number] Identification Technician: Vijay Salter PhD, Phone: [phone] Thyroxine (T4) free [Mass/volume] in Serum [...]
== END 2017-01-25 08:54 | disposition home or self-care (01) ==
LOC: ER 15:35 → 2ND 18:07
PROVIDERS: Emergency Medicine; Family Medicine
DX: E87.1 Hypo-osmolality and hyponatremia (principal); I10 Essential (primary) hypertension; I25.2 Old myocardial infarction; Z85.3 Personal history of malignant neoplasm of breast; E78.5 Hyperlipidemia, unspecified; F41.9 Anxiety disorder, unspecified; E07.9 Disorder of thyroid, unspecified; Z79.899 Other long term (current) drug therapy
CPT/HCPCS: G0378

== ENCOUNTER 2017-03-28 13:03 | Emergency (ER) | payer MEDICARE ==
[~2017-03-28] VITALS: Ht 154.9 cm; Wt 43.5 kg
[~2017-03-28 13:03] MED LIST changes: +HYDROCHLOROTH12.5 M2 PO; +LOSARTAN POTAS100 MG PO
--- NOTE | 2017-03-28 14:04 | Urgent Treatment Center Report ---
History of Present Issue Date/Time Seen by Provider 03/28/17 1351 Visit Reason Pt arrived:Walked Presenting Problem:INTERMITTENT DIZZINESS BEGAN LAST NIGHT Location if Accident: Onset of symptoms date/time:/ or onset unknown for:MEDICAL HX UNKNOWN Have you (or family members/close friends) recently traveled outside the [place]? N If Yes, where/when: Have you had exposure to infectious disease within the past month? TB? Other? Specify: Patient states that she has previously been diagnosed with Vertigo but it has not acted up in awhile State that she has been having sinus pain and pressure and then last night she woke up and felt dizzy and felt like the room was spinning around her State that after she got up it continued and she knew she needed to come in and get some medicaiton for it and her sinuses ALLERGIES Coded Allergies: Sulfa (Sulfonamide Antibiotics) (Severe, [id number]/THROAT 02/12/17) Home Medications Active Scripts Aspirin (Adult Low Dose Aspirin EC) 81 MG PO DAILY #30 TAB Ref 1 Prov: 09/21/15 Clopidogrel Bisulfate (Plavix) 75 MG PO DAILY #30 TAB Ref 1 Prov: 09/21/15 Losartan Potassium (Losartan 100MG) 100 MG PO DAILY #30 TAB Ref 2 Prov: 01/25/17 Reported Medications Atorvastatin Calcium 10 MG PO QHS #30 TAB Levothyroxine Sodium (Synthroid 0.075MG) 0.075 MG PO DAILY Alprazolam (Xanax 1MG) 0.5-1 MG PO QHSP PRN SLEEP #30 TAB Carvedilol (Carvedilol 12.5MG) 12.5 MG PO BID CHOLECALCIFEROL (VITAMIN D3) (Vitamin D) 2,000 UNITS PO DAILY #30 History Medical History General CAD? No Angina: Yes IN: Yes Hypertension? Yes Hyperlipidemia? Yes CHF? No DVT? No PE? No COPD? No Asthma? No Anemia? No GERD? Yes Gastric ulcers? No GI Bleed? No Hernia? No Thyroid Problems? Yes Hypothyroidism? No CVA? No Seizures? No Diabetes? No Renal Insuffiency? No UTI? No Stones? No BPH? No GB Disease: No Nephritic Syndrome? No Asplenia? No Hepatitis? No Sickle Cell Disease? No Arthritis? Yes Migraines? No Cataracts? No Glaucoma? No MRSA? No HIV? No TB? No Anxiety? Yes Depression? No Cancer? Yes Site: BREAST CA More? Yes Additional hx: OSTEOPOROSIS Immunization HX DT/Tetanus Unknown Flu Refused Pneumonia Refuses Surgical Hx Previous Surgery?Y D & C CARPEL TUNNEL RT HAND LT LUMPECTOMY CARDIAC CATH X3 KIDNEY CATH Family History Family HX Diabetes No CAD Yes Hypertension Yes Hyperlipidemia Yes Cancer Yes TB No Social History Smoking Hx Smoker: Never Smoker Tobacco: No Packs/day N/A Alcohol Alcohol: No Review of Systems All Other Systems Reviewed and Negative ENT nose pain, nose congestion, throat pain. Psychiatric/Neurological other (dizzy) Physical Exam Vital Signs Vital Signs Date Time Temp Pulse Resp B/P Pulse O2 O2 Flow FiO2 Ox Delivery Rate 03/28 1329 99.0 68 18 157/80 98 General Appearance normal appearance, WD/WN, no apparent distress Ear, Nose, Throat fluid noted behind left ear, Tenderness noted maxillary sinus with drainage noted in back of throat Respiratory Status Yes: trachea midline, chest symmetrical, non tender chest. No: respiratory distress. Lung Sounds bilateral: normal breath sounds, lungs clear. Cardiovascular normal exam Neurologic alert, normal exam, oriented x 3 Medical Decision Making LABS/Meds/Orders Pt receiving controlled substance in ED? No Results/Orders Current Medication Orders Sig/Jose Manuel Start time Last Medication Dose Route Stop Time Status Admin Meclizine HCl 0 .STK-MED ONE 03/28 1402 DC .ROUTE Meclizine HCl 25 MG ONCE ONE 03/28 1400 DC 03/28 PO 03/28 1401 1403 Departure Departure Time of Disposition 1423 Disposition DC Home or Self Care(routine) Clinical Impression Primary Impression: Vertigo Secondary Impressions: Sinusitis Qualifiers: Sinusitis location: maxillary Chronicity: unspecified Qualified Code: J32.0 - Chronic maxillary sinusitis Condition STABLE Referrals Kendrick Lyons MD (Family): 3 Days-Call Office Or sooner if no improvement Patient Instructions DI for Sinusitis, DI for Vertigo, Sinusitis, Vertigo Additional Instructions Stand slowly and make slow movements to help prevent you from falling due to the Vertigo FOllow up with family doctor Return if needed Take medication as prescribed Discharge Counseling Counseled pt/family regarding diagnosis, medications/RX, home care, follow up needs Prescriptions Current Visit Scripts Amoxicillin/Potassium Clav (Augmentin 875-125 Tablet) 1 EACH PO BID #14 TAB MECLIZINE HCL (ANTIVERT 25MG (generic)) 25 MG PO BID #60 TAB Fluticasone Propionate (Flonase 50 Mcg Nasal [place]) 2 SPRAY NA DAILY #1 BOT at 1427
[2017-03-28] MEDS ORDERED: FLONASE 50 MCG16 GM (14:26)
[2017-03-28] MEDS ORDERED: MECLIZINE HYDRO25 M2 PO (14:26)
[2017-03-28] MEDS ORDERED: AUGMENTIN 875-1 EACH PO (14:26)
--- OUTSIDE RECORDS SUMMARY | 2017-03-28 14:28 | External Medical Summary Rpt | CCD ---
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 Y Comment: Hold specimen in OE? N 24 hour = 51 Not complet urine 017 mmol/L Estab. ed sodium measure ment (moles/ Comment: Performed at: [facility] Comment: [phone] [phone] Comment: Manager Of Environmental Services: Vijay Salter PhD, Phone: [phone] Magnesium measurement (01-24-2017 15:40) Magnesi = 1.8 1.4-2.2 complet um 017 mg/dL ed measure 15:40 ment Urinalysis with microscopy (01-24-2017 15:40) Urine = NONE O complet leukocy 017 wbc/hpf ed natty 15:40 count (number /volume ) Urine 0.2 0.2 NEG complet urobili 017 L ed nogen 15:40 E.U./dL detecti on by test str [place] NONE 0-5 complet s 017 NONE L ed epithel 15:40 #/hpf ial cells detecti on in u Urine = 1.010 1.005-1 complet specifi 017 .030 ed c 15:40 gravity measure ment Erythro 5-10 0 complet cytes 017 5-10 L ed detecti 15:40 rbc/hpf on in urine sedimen t Urine = NEG complet protein 017 NEGATIV ed 15:40 E mg/dL measure ment by automat ed t Urine = 7.0 5.0-8.5 complet pH 017 ed 15:40 Urine NEGATIV NEG complet nitrite 017 E ed 15:40 NEGATIV detecti E L on by test strip Mucus NEGATIV NEG complet detecti 017 E ed on in 15:40 NEGATIV urine E L sedimen t by lig Urine NEGATIV NEG complet ketones 017 E ed 15:40 NEGATIV detecti E L on by mg/dL automat ed natty Glucose = NEG complet ur 017 NEGATIV ed test 15:40 E strip Urine YELLOW YELLOW complet color 017 YELLOW ed 15:40 L Urine NEGATIV NEG complet blood 017 E ed detecti 15:40 NEGATIV on E L Urine NEGATIV NEG complet total 017 E ed bilirub 15:40 NEGATIV in E L detecti on by test Bacteri TRACE O complet a 017 TRACE L ed detecti 15:40 on in urine sedimen t by Urine CLEAR CLEAR complet appeara 017 CLEAR L ed nce 15:40 determi [facility] Comprehensive metabolic panel (01-24-2017 15:40) Protein = 7.0 6.4-8.2 complet total 017 gm/dL ed ser/remigio 15:40 s ALT = 23 12-78 complet (SGPT) 017 U/L ed ser/remigio 15:40 s Serum = 20 15-37 complet or 017 U/L ed plasma 15:40 asparta te aminotr ansfera Serum = 125 136-145 complet sodium 017 mmoL/L ed measure 15:40 ment Serum = 3.4 3.5-5.1 complet potassi 017 mmoL/L ed um 15:40 measure ment Serum = 153 74-106 complet or 017 mg/dL ed plasma 15:40 glucose measure ment (mas Serum = 2.9 1.3-3.2 complet globuli 017 gm/dL ed n 15:40 measure ment (mass/v olume) Estimat = 83 59- complet ed 017 ML/MIN ed glomeru 15:40 lar filtrat ion rate (GF Comment: REFERENCE RANGE: >60 ML/MIN/1.73 SQUARE METERS Comment: If this patient is -[place] Citizen, then multiply the Comment: result by 1.210. Estimat = 52 50-200 complet ion of 017 ML/MIN ed creatin 15:40 ine renal clearan ce Serum = 0.7 0.55-1. complet or 017 mg/dL 02 ed plasma 15:40 creatin ine measure ment ( Carbon = 26 21.0-32 complet dioxide 017 mmoL/L .0 ed 15:40 measure ment Serum = 89 98-107 complet or 017 mmoL/L ed plasma 15:40 chlorid e measure ment (mo Serum = 9.1 8.5-10. complet or 017 mg/dL 1 ed plasma 15:40 calcium measure ment (mas Serum = 6 7-18 complet or 017 mg/dL ed plasma 15:40 urea nitroge n measure men Serum = 0.6 0.2-1.0 complet or 017 mg/dL ed plasma 15:40 total bilirub in measure m Serum = 73 46-116 complet or 017 U/L ed plasma 15:40 alkalin e phospha tase emma Serum = 1.4 1.1-1.8 complet or 017 ed plasma 15:40 albumin /globul in mass ra Serum = 4.1 3.4-5.0 complet or 017 gm/dL ed plasma 15:40 albumin measure ment (mas Cardiac enzymes (01-24-2017 15:40) Serum = 0.05 0.00-0. complet or 017 ng/mL 06 ed plasma 15:40 troponi n i.cardi ac measu Serum = 72 26-192 complet or 017 U/L ed plasma 15:40 creatin e kinase measure m Serum = 0.6 0.0-3.6 complet or 017 ng/mL ed plasma 15:40 creatin e kinase MB measu Serum = 0.8 0-4.0 complet or 017 U/L ed plasma 15:40 creatin e kinase MB (CK-M Brain natriuretic peptide (01-24-2017 15:40) Brain = 29 0-100 complet natriur 017 pg/mL ed etic 15:40 peptide Blood lactic acid measurement (moles/vol (01-24-2017 15:40) Blood = 1.3 0.4-2.0 complet lactic 017 mmol/L ed acid 15:40 measure ment (moles/ vol CBC w auto diff (01-24-2017 15:40) Blood = 277 142-424 complet platele 017 K/mm3 ed t count 15:40 Automat = 7.0 7.4-10. complet ed 017 fl 4 ed blood 15:40 platele t mean volume emma [place] % = 8.4 % 1.7-9.3 complet 017 ed 15:40 Absolut = 0.6 0.1-1.0 complet e 017 K/mm3 ed monocyt 15:40 e count Automat = 91.9 82.2-97 complet ed 017 fl .8 ed erythro 15:40 cyte mean corpusc ular v Automat = 34.7 31.8-35 complet ed 017 g/dl .4 ed erythro 15:40 cyte mean corpusc ular h Mean = 31.9 27-31.2 complet corpusc 017 pg ed ular 15:40 hemoglo bin (MCH) determ Lymphoc = 23.4 10-50.0 complet yte 017 % ed count, 15:40 blood, automat ed Absolut = 1.6 0.7-4.5 complet e 017 K/mm3 ed lymphoc 15:40 yte count Blood = 13.7 12.2-16 complet hemoglo 017 g/dL .2 ed bin 15:40 measure ment (mass/v olum Blood = 39.5 37.0-47 complet hematoc 017 % .0 ed rit 15:40 (volume fractio n) Granulo = 66.0 37.0-80 complet cyte 017 % .0 ed percent 15:40 age Blood = 4.5 1.8-7.8 complet granulo 017 K/mm3 ed cytes 15:40 automat ed count (numb Automat = 1.7 % 0.1-12. complet ed 017 0 ed blood 15:40 eosinop hils/10 0 leukocy t Automat = 0.1 0.0-0.4 complet ed 017 K/mm3 ed blood 15:40 eosinop hil count Baso % = 0.6 % 0.1-2.0 complet 017 ed 15:40 Automat = 0.0 0-0.2 complet ed 017 K/MM3 ed blood 15:40 basophi l count (count/ vo Blood = 6.7 4.8-10. complet leukocy 017 K/MM3 8 ed natty 15:40 count (number /volume ) Automat = 12.1 11.5-17 complet ed 017 % .5 ed erythro 15:40 cyte distrib ution width Red = 4.30 4.2-5.4 complet blood 017 M/mm3 ed cell 15:40 count Urinalysis dipstick W Reflex Microscopic panel in [...] nce of 017 ed Urine 15:40 Bilirub 10-05-2 NEGATIV NEG complet in 017 E ed [...]
--- OUTSIDE RECORDS SUMMARY | 2017-03-28 14:28 | External Medical Summary Rpt | CCD ---
Author Author , SHARATH EARLY Address Unknown Phone .[facility] Purpose Continuity of Care Document - 09-11-2016 [...] sodium measure ment (moles/ Comment: Performed at: [facility] Comment: [phone] [phone] Comment: Civil Structural Designer: Vijay Salter PhD, Phone: [phone] Magnesium measurement (01-24-2017 15:40) Magnesi = 1.8 [...] 017 CLEAR L ed nce 15:40 determi [facility] Comprehensive metabolic panel (01-24-2017 15:40) Protein = [...] SQUARE METERS Comment: If this patient is -[place], then multiply the Comment: result by 1.210. [...] blood 15:40 platele t mean volume emma [place] % = 8.4 % 1.7-9.3 complet 017 [...]
--- OUTSIDE RECORDS SUMMARY | 2017-03-28 14:28 | External Medical Summary Rpt | CCD ---
Demographics Preferred Language Frisian Marital Status Unknown Restoration Affiliation Unknown Race Unknown Ethnic Group Unknown Author Author , SHARATH EARLY Address Unknown Phone Immunization No patient found.
--- OUTSIDE RECORDS SUMMARY | 2017-03-28 14:28 | External Medical Summary Rpt | CCD ---
Demographics Preferred Language Georgian Marital Status Unknown Yarsanism Affiliation Unknown Race Unknown Ethnic Group Unknown Author Author , SHARATH EARLY Address Unknown Phone Immunization No patient found.
--- OUTSIDE RECORDS SUMMARY | 2017-03-28 14:30 | External Medical Summary Rpt ---
[...] in AM Serum or source Plasma data Sodium [Moles/volume] in 24 hour Urine Observa Value Referen Units Interpr Notes Date tion ce etation Range Collected by nurse? Y Hold specimen in OE? N Sodium Not mmol/L No Performed Jan 25 [Moles/vo Estab. informati at: CB 2017 lume] in on in - [facility] 24 hour source Urine data [id number] [place], [place] [id number] Utility Bill Collection Clerk: Vijay Salter PhD, Phone: [phone] Magnesium [Moles/volume] in Unspecified specimen Observa Value [...] Albumin 3.4 - 5.0 gm/dL Normal No Oct 5 [Mass/vol informati 2017 3:40 ume] in on in PM Serum or source Plasma data Alkaline 46 - 116 U/L Normal No Oct 5 phosphata informati 2017 3:40 se on in PM [Enzymati source c data activity/ volume] in Serum or Plasma Bilirubin 0.2 - 1.0 mg/dL Normal No Oct 5 .total informati 2017 3:40 [Mass/vol on in PM ume] in source Serum or data Plasma Urea 7 - 18 mg/dL Low No Oct 5 nitrogen informati 2017 3:40 [Mass/vol on in PM ume] in source Serum or data Plasma Calcium 8.5 - mg/dL Normal No Oct 5 [Mass/vol 10.1 informati 2017 3:40 ume] in on in PM Serum or source Plasma data Chloride 98 - 107 mmoL/L Low No Oct 5 [Moles/vo informati 2016 3:40 lume] in on in PM Serum or source Plasma data Carbon 21.0 - mmoL/L Normal No Oct 5 dioxide, 32.0 informati 2017 3:40 total on in PM [Moles/vo source lume] in data Serum or Plasma Creatinin 0.55 - mg/dL Normal No Oct 5 e 1.02 informati 2017 3:40 [Mass/vol on in PM ume] in source Serum or data Plasma Creatinin 50 - 200 ML/MIN Normal No Oct 5 e renal informati 2016 3:40 clearance [...] gm/dL Normal No Oct 5 [Mass/vol informati 2017 3:40 ume] in on in PM Serum source data Glucose 74 - 106 mg/dL High No Oct 5 [Mass/vol informati 2017 3:40 ume] in on in PM Serum or source Plasma data Potassium 3.5 - 5.1 mmoL/L Low No Oct 5 informati 2017 3:40 [Moles/vo on in PM lume] in source Serum or data Plasma Sodium 136 - 145 mmoL/L Low No Oct 5 [Moles/vo informati 2016 3:40 lume] in on in PM Serum or source Plasma data Aspartate 15 - 37 U/L Normal No Jan 24 inform2016 3:40 aminotran on in PM sferase source [Enzymati data c activity/ volume] in Serum or Plasma Alanine 12 - 78 U/L Normal No Jan 24 aminotran informati 2016 3:40 sferase on in PM [Enzymati source c data activity/ volume] in Serum or Plasma Protein 6.4 - 8.2 gm/dL Normal No Jan 24 [Mass/vol informati 2016 3:40 ume] in on in PM Serum or source Plasma data Lactate [Moles/volume] in Blood Observa Value Referen Units Interpr Notes Date tion ce etation Range Lactate 0.4 - 2.0 mmol/L Normal No Jan 24 [Moles/vo informati 2016 3:40 lume] in on in PM Blood [...] No Jan 24 [Mass/vol informati informati informati 2016 3:40 ume] in on [...] No Jan 24 gravity 1.030 informati informati 2017 3:40 of Urine on in on in [...] No Jan 24 [Mass/vol informati informati informati 2016 3:40 ume] in on [...] Normal No Jan 24 Urine informati informati 2016 3:40 on in on in PM [...] 0 - 0.2 K/MM3 Normal No Jan 24 inform2016 3:40 [#/volume on in PM ] in source Blood by data Automated count Basophils 0.1 - 2.0 % Normal No Jan 24 / informati 2016 3:40 leukocyte on in PM s in source Blood by data Automated count Eosinophi 0.0 - 0.4 K/mm3 Normal No Jan 24 ls informati 2016 3:40 [#/volume on in PM [...] 424 K/mm3 Normal No Jan 24 informati 2016 [...] mg/dL Normal No Sep 12 nitrogen informati 2017 8:45 [Mass/vol on in PM ume] in [...] Normal No Sep 12 e renal informati 2016 8:45 clearance on in PM source predicted [...] - 5.1 mmoL/L Normal No Sep 12 inform2016 8:45 [Moles/vo on in PM lume] in source Serum or data Plasma Sodium 136 - 145 mmoL/L Normal No Sep 12 [Moles/vo informati 2017 8:45 lume] in on in PM Serum or source Plasma data CBC W Auto Differential panel in Blood Observa Value Referen Units Interpr Notes Date tion ce etation Range Basophils 0 - 0.2 K/MM3 Normal No Sep 12 inform2016 8:45 [#/volume on in PM ] in source Blood by data Automated count Basophils 0.1 - 2.0 % Normal No Sep 12 /100 informati 2016 8:45 leukocyte on in PM s in source Blood by data Automated count Eosinophi 0.0 - 0.4 K/mm3 Normal No Sep 12 ls informati 2016 8:45 [#/volume on in PM [...] Normal No Sep 12 natty/100 80.0 informati 2016 8:45 leukocyte on in PM [...] pg High No Sep 12 te mean inform2016 8:45 corpuscul on in PM ar source [...] - 424 K/mm3 Normal No Sep 12 inform2016 8:45 [...] Interpr Notes Date tion ce etation Range Triiodoth 2.0 - 4.4 pg/mL No Performed Nov 10 yronine informati at: CB 2017 (T3) Free on in - [facility] 10:03 AM source [Mass/vol data [id number] ume] in [address] Plasma [place], [place] [id number] Utility Bill Collection Clerk: Vijay Salter PhD, Phone: [phone] Thyroxine (T4) free [Mass/volume] in Serum or Plasma Observa Value Referen Units Interpr Notes Date tion ce etation Range Thyroxine 0.76 - ng/dL Normal No Nov 29 (T4) 1.46 2016 free on in 10:03 AM [Mass/vol source ume] in data Serum or Plasma Thyrotropin [Units/volume] in Serum or Plasma Observa Value Referen Units Interpr Notes Date tion ce etation Range Thyrotrop 0.358 - uIU/ml Low No Nov 29 in 3.740 inform2016 [Units/vo on in 10:03 AM lume] in source Serum or data Plasma Lipid 1996 panel in Serum or Plasma Observa Value Referen Units Interpr Notes Date tion ce etation Range Cholester < 200 mg/dL No No Nov 29 ol informati 2016 [Moles/vo on in on in 10:02 AM lume] in source source Unspecifi data data ed specimen Cholester 40 - 60 MG/DL High No Nov 29 ol in HDL 2016 on in 10:02 AM [Mass/vol source ume] in data Serum or Plasma Cholester 0 - 130 mg/dL Normal No Nov 29 ol in LDL 2016 on in 10:02 AM [Mass/vol source ume] in data Serum or Plasma by calculati on Triglycer 30 - 200 mg/dL Normal No Nov 29 juan miguel 2016 [Moles/vo on in 10:02 AM lume] in source Serum or data Plasma Cholester 0 - 40 No Normal No Nov 29 ol in informati 2017 VLDL on in on in 10:02 AM [...] 116 U/L Normal No Nov 29 phosphata 2016 se on in 10:02 AM [Enzymati source c data activity/ volume] in Serum or Plasma Bilirubin 0.0 - 0.2 mg/dL Normal No Nov 29 .direct informati 2017 [Mass/vol on in 10:02 AM [...] - 37 U/L Normal No Nov 29 informati 2017 aminotran on in 10:02 AM sferase source [Enzymati data c activity/ volume] in Serum or Plasma Alanine 12 - 78 U/L Normal No Nov 29 aminotran informati 2016 sferase on in 10:02 AM [Enzymati source c data activity/ volume] in Serum or Plasma Protein 6.4 - 8.2 gm/dL Normal No Nov 29 [Mass/vol informati 2017 ume] in on in 10:02 AM Serum or source Plasma data MISCELLANEOUS TEST Observa Value Referen Units Interpr Notes Date ti ce etation Range MISCELL COMMENT No No [...] Normal No Sep 20 (T4) 1.46 informati 2016 free on in 12:55 PM [Mass/vol source ume] in data Serum or Plasma Comprehensive metabolic 2000 panel in Serum or Plasma Observa Value Referen Units Interpr Notes Date ti ce etation Range Albumin/G 1.1 - 1.8 No Normal No Erlin 1 lobulin informati informati 2017 [Mass on in on in 12:54 PM ratio] in source source Serum or data data Plasma Albumin 3.4 - 5.0 gm/dL Normal No Erlin 1 [Mass/vol informati 2017 ume] in on in 12:54 PM Serum or source Plasma data Alkaline 46 - 116 U/L Normal No Erlin 1 phosphata informati 2017 se on in 12:54 PM [Enzymati source [...] mmoL/L Low No Erlin 1 [Moles/vo informati 2016 lume] in on in 12:54 PM Serum or source Plasma data Aspartate 15 - 37 U/L Normal No Sep 20 inform2016 aminotran on in 12:54 PM sferase source [Enzymati data c activity/ volume] in Serum or Plasma Alanine 12 - 78 U/L Normal No Sep 20 aminotran inform2016 sferase on in 12:54 PM [Enzymati source c data activity/ volume] in Serum or Plasma Protein 6.4 - 8.2 gm/dL Normal No Sep 20 [Mass/vol informati 2016 ume] in on in 12:54 PM Serum or source Plasma data Thyrotropin [Units/volume] in Serum or Plasma Observa Value Referen Units Interpr Notes Date ti ce etation Range Thyrotrop 0.358 - uIU/ml High No Sep 20 in 3.740 inform2016 [Units/vo on in 12:54 PM lume] in source Serum or data Plasma Troponin I.cardiac [Mass/volume] in Serum or Plasma Observa Value Referen Units Interpr Notes Date ti ce etation Range Troponin 0.00 - ng/mL High 0.04 - September 17 I.cardiac 0.06 0.49 IS 2017 9:28 AN PM [Mass/vol INDETERMI ume] in [...] U/L Normal No September 17 kinase informati 2016 7:00 [Enzymati on in PM c source activity/ data volume] in Serum or Plasma Troponin 0.00 - ng/mL High 0.04 - September 17 I.cardiac 0.06 0.49 IS 2017 7:00 AN PM [Mass/vol INDETERMI ume] in [...] 3.5 - 5.1 mmoL/L Normal No September 17 inform2016 7:00 [Moles/vo on in PM lume] in source Serum or data Plasma Sodium 136 - 145 mmoL/L Low No September 17 [Moles/vo informati 2016 7:00 lume] in on in PM Serum or source Plasma data Aspartate 15 - 37 U/L Normal No September 17 inform2016 7:00 aminotran on in PM sferase source [...] 0 - 0.2 K/MM3 Normal No September 17 inform2016 7:00 [#/volume on in PM ] in source Blood by data Automated count Basophils 0.1 - 2.0 % Normal No September 17 informati 2016 7:00 leukocyte on in PM s in source Blood by data Automated count Eosinophi 0.0 - 0.4 K/mm3 Normal No September 17 ls informati 2016 7:00 [#/volume on in PM ] in source Blood by data Automated count Eosinophi 0.1 - % Normal No September 17 ls/100 12.0 informati 2016 7:00 leukocyte on in PM s in source Blood by data Automated count Granulocy 1.8 - 7.8 K/mm3 Normal No September 17 natty informati 2016 7:00 [#/volume on in PM ] in source Blood by data Automated count Granulocy 37.0 - % Normal No September 17 natty/100 80.0 informati 2016 7:00 [...] - 9.3 % Normal No September 17 / informati 2016 7:00 leukocyte on in PM s in source Blood by data Automated count Platelet 7.4 - fl Low September 17 mean 10.4 informati 2016 7:00 volume on in PM [Entitic source volume] data in Blood by Automated count Platelets 142 - 424 K/mm3 Normal No September 17 inform2016 7:00 [#/volume on in PM ] in source Blood data Erythrocy 4.2 - 5.4 M/mm3 Normal No September 17 natty informati 2016 7:00 [#/volume on in PM ] in source Amniotic data fluid Erythrocy 11.5 - % Normal No September 17 te 17.5 informati 2017 7:00 distribut on in PM ion width [...] - 2.0 % Normal No September 12 informati 2016 6:15 leukocyte on in AM [...] Plasma data Carbon 21.0 - mmoL/L Normal September 12 dioxide, 32.0 informati 2016 6:15 [...] LTS CALLED TO: CARLITOS De La Cruz [id number]/11/[id number] Erin Landa ictoria> 0.5 IS CONSISTEN T WITH MYOCARDIA L ISCHEMIA OR INFARCTIO N Troponin I.cardiac [Mass/volume] in Serum or Plasma Observa Value Referen Units Interpr Notes Date tion ce etation Range Troponin 0.00 - ng/mL High September 11 I.cardiac 0.06 2016 6:53 CRITICAL PM [Mass/vol RESULTS ume] in Serum or RESU Plasma LTS CALLED TO: BROCK Castillo 09/11/[id number] Diana Guzman neha> 0.5 IS CONSISTEN T [...] U/L Normal No September 11 kinase informati 2017 2:35 [Enzymati on in PM c source [...] 3.5 - 5.1 mmoL/L Normal No September 11 inform2016 2:35 [Moles/vo on in PM lume] in source Serum or data Plasma Sodium 136 - 145 mmoL/L Low No September 11 [Moles/vo informati 2016 2:35 lume] in on in PM Serum or source Plasma data Aspartate 15 - 37 U/L Normal No September 11 informati 2016 2:35 aminotran on in PM sferase source [Enzymati data c activity/ volume] in Serum or Plasma Alanine 12 - 78 U/L Normal No September 11 aminotran informati 2016 2:35 sferase on in PM [Enzymati source [...] - 2.0 % Normal No September 11 / informati 2016 2:35 leukocyte on in PM s in source Blood by data Automated count Eosinophi 0.0 - 0.4 K/mm3 Normal No September 11 ls informati 2016 2:35 [#/volume on in PM [...] Blood data Hemoglobi 12.2 - g/dL No No September 11 n 16.2 informati informati [...] - 9.3 % Normal No September 11 /100 informati 2017 2:35 leukocyte on in PM s in source Blood by data Automated count Platelet 7.4 - fl Low September 11 mean 10.4 informati 2016 2:35 volume on in PM [Entitic source volume] data in Blood by Automated count Platelets 142 - 424 K/mm3 Normal No September 11 informati 2016 2:35 [#/volume on in PM ] in source Blood data Erythrocy 4.2 - 5.4 M/mm3 Normal No September 11 natty informati 2016 2:35 [#/volume on in PM ] in source Amniotic data fluid Erythrocy 11.5 - % Normal September 11 te 17.5 informati 2016 2:35 distribut on in PM ion width source [Entitic data volume] by Automated count Leukocyte 4.8 - K/MM3 Normal No September 11 s 10.8 informati 2016 2:35 [#/volume on in PM ] in source Blood data
--- OUTSIDE RECORDS SUMMARY | 2017-03-28 14:30 | External Medical Summary Rpt ---
[...] - [facility] 24 hour source Urine data [id number] [place], [place] [id number] Leave Manager: Vijay Salter PhD, Phone: [phone] Magnesium [Moles/volume] in Unspecified specimen Observa [...] - [facility] 10:03 AM source [Mass/vol data [id number] ume] in [address], [place], [place] [id number] Leave Manager: Vijay Salter PhD, Phone: [phone] Thyroxine (T4) free [Mass/volume] in Serum [...]
[2017-03-28 14:31] VITALS: BP 152/80
== END 2017-03-28 14:32 | disposition home or self-care (01) ==
LOC: UTC 13:03
DX: R42 Dizziness and giddiness (principal); J32.0 Chronic maxillary sinusitis

== ENCOUNTER → 2017-04-08 | Outpatient (CLI) | payer MEDICARE ==
[~2017-04-08] MED LIST changes: +AUGMENTIN 875-1 EACH PO; +FLONASE 50 MCG16 GM; +MECLIZINE HYDRO25 M2 PO
[2017-04-08 12:00] LABS: HEMOGLOBIN 12.9 g/dL (12.2-16.2); LYMPH # 0.8 K/mm3 (0.7-4.5); LYMPH % 12.9 % (10-50.0)
[2017-04-08 13:20] LABS: BUN 7 mg/dL (7-18)
[2017-04-08 13:23] LABS: GFR (ESTIMATED) 83 ML/MIN (59-)
[2017-04-09 07:38] LABS: Vitamin D, 25-Hydroxy 47.3 ng/mL (30.0-100.0)
[2017-04-09 08:42] LABS: Hep C Virus Ab <0.1 (0.0-0.9); RA Latex Turbid. <10.0 IU/mL (0.0-13.9); Vitamin B12 383 pg/mL (232-1245)
[2017-04-10 03:37] LABS: CCP Antibodies IgG/IgA 12 units (0-19)
[2017-04-10 16:36] LABS: Antinuclear Antibodies, IFA Negative (.)
--- NOTE | 2017-04-16 08:49 | RADIOLOGY REPORT PS360 ---
DIG MAMM-SCREEN JOSE W/CAD ORDERING PHYSICIAN : Molly Palomo APRN PATIENT AGE: 71 years GENDER: Female COMPARISON: March 2015, 2015 and April 2016 HISTORY:71-year-old with no hormones. Previous lumpectomy with radiation 2009 left breast. Family history. Maternal cousin with breast cancer TECHNIQUE: Std CC & MLO images were obtained. R2 CAD reviewed. Additional CC nipple profile views included FINDINGS: RIGHT BREAST: A stable appearance the right breast but no new areas of concern. Follow-up right mammogram 1 year. LEFT BREAST: Postsurgical changes and Residual density at lumpectomy site at the deep inferior left breast the residual soft tissue density posterior to the biopsy site again noted and is similar to previous studies dating back to 2014, 2013. There is also noted compress out on the April 2016 additional views and thus can be followed Numerous vascular clips are seen at biopsy site Progressive of dense coarse calcifications at lumpectomy site. This Circular spherical like feature dense calcification up to 8 mm diameter is seen centrally at this biopsy site.These calcifications have become more dense Since 2016 and most compatible with benign postbiopsy fat necrosis changes. Annual follow-up would be adequate overall after reviewing all images Bilateral follow-up in not over one year however would be important to emphasize in this patient IMPRESSION: - Left breast.. Follow up one year adequate Increased density of benign appearing fat necrosis appearing calcifications at lumpectomy site left breast can be followed Right breast.... No interval change follow-up in one year. BI-RADS CATEGORY: 2_Benign RECOMMENDED FOLLOWUP: 12M 12 MONTH FOLLOW-UP (A letter has been sent to the patient regarding results of the study.)
== END ==
LOC: LAB 10:48 → RAD 10:48
PROVIDERS: Nurse Practitioner Family
DX: Z12.31 Encounter for screening mammogram for malignant neoplasm of breast (principal); E53.8 Deficiency of other specified B group vitamins; M25.542 Pain in joints of left hand; M25.541 Pain in joints of right hand; Z11.59 Encounter for screening for other viral diseases; M81.0 Age-related osteoporosis without current pathological fracture; R73.9 Hyperglycemia, unspecified; G62.9 Polyneuropathy, unspecified
CPT/HCPCS: G0202